=== PATIENT | female | born 1940 | race Hispanic/Latino ===

== ENCOUNTER 2024-11-21 16:41 | Emergency (ER) | payer OTHER, MEDICAID ==
[~2024-11-21] VITALS: Ht 134.6 cm; Wt 51.7 kg
[~2024-11-21 16:41] MED LIST: AMLO-257 PO; AZIT500T4 PO; CEFD300C3 PO; CHOL-9 PO; LEVO50 PO; OSEL75 PO
--- NOTE | 2024-11-21 17:10 | ERN ---
ED Note History of Present Illness Stated Complaint: CONSTIPATION X 2 WEEKS Chief Complaint: Constipation Time Seen by MD: 17:00 Dictation: SAID 84-YEAR-OLD FEMALE HERE WITH HER DAUGHTER WITH COMPLAINTS OF BLOATING WITH CONSTIPATION FOR THE LAST TWO WEEKS. NO FEVER NO CHILLS NO NAUSEA NO VOMITING. DAUGHTER STATES THAT SHE WAS IN A HOSPITAL IN [place] WAS RELEASED AND THEN SHE BROUGHT HER OVER HERE AFTER TWO WEEKS TO [facility] AND HAS BEEN JUST GIVEN HER MILK OF MAGNESIA, DID NOT GO SEE HER DOCTOR AT [place]. SHE SAID SHE IS EATING NORMALLY. Allergies: Coded Allergies: No Known Allergies (Unverified Allergy, Unknown, 02/14/24) Home Meds Active Scripts Amlodipine Besylate (Amlodipine Besylate) 5 Mg Tablet, 1 TAB PO DAILY for high blood pressure for 30 Days, #30 TAB 0 Refills Prov:GHISLAINE HA 02/16/24 Cefdinir (Cefdinir) 300 Mg Capsule, 1 CAP PO BID for 5 Days, #10 CAP 0 Refills Prov:GHISLAINE HA 02/16/24 Oseltamivir Phosphate (Tamiflu) 75 Mg Cap, 1 CAP PO BID for 5 Days, #10 CAP 0 Refills Prov:GHISLAINE HA N 02/16/24 Azithromycin (Azithromycin) 500 Mg Tablet, 1 TAB PO DAILY for 3 Days, #3 TAB 0 Refills Prov:GHISLAINE HA 02/16/24 Reported Medications Cholecalciferol (Vitamin D3) (Vitamin D3) 250 Mcg (62604 Unit) Tablet, 5 TAB PO QWEEK for 28 Days, #8 TAB 0 Refills 02/15/24 Levothyroxine Sodium (Levothroid/Synthroid) 50 Mcg Tab, 25 MCG PO DAILY, TAB 02/15/24 Past Medical History Past Medical History: Hypertension, Hypothyroid Surgical History: Hysterectomy History: Not Applicable RN Note Reviewed/Agreed w/PFSH: Yes Review of System Dictation CONSTITUTIONAL: NEGATIVE EXCEPT FOR HPI HEAD/FACE: NEGATIVE EXCEPT FOR HPI EENT: NEGATIVE EXCEPT FOR HPI RESPIRATORY: NEGATIVE EXCEPT FOR HPI GASTROINTESTINAL/ABDOMINAL: NEGATIVE EXCEPT FOR HPI CONSTIPATION/BLOATING TWO WEEKS GENITOURINARY: NEGATIVE EXCEPT FOR HPI MUSCULOSKELETAL: NEGATIVE EXCEPT FOR HPI INTEGUMENTARY: NEGATIVE EXCEPT FOR HPI NEUROLOGICAL/PSYCH: NEGATIVE EXCEPT FOR HPI HEMATOLOGIC/LYMPHATIC: NEGATIVE EXCEPT FOR HPI ALL SYSTEMS NEGATIVE, EXCEPT NOTED ABOVE. 13 POINT REVIEW OF SYSTEMS ASSESSED AND ALL NEGATIVE EXCEPT FOR ABOVE. Initial Vital Sign VS Vital Signs Date Time Temp Pulse Resp B/P (MAP) Pulse Ox O2 Delivery O2 Flow Rate FiO2 11/21/24 16:44 98.1 82 18 128/88 98 11/21/24 17:15 Room Air* 0 21 Physical Exam Dictation VITAL SIGNS REVIEWED GENERAL APPEARANCE: ALERT, ORIENTED X 122. HAS A HISTORY OF DEMENTIA AND DAUGHTER IS THE CHIEF HISTORIAN. HEAD AND FACE: NON-TRAUMATIC. EYES: PERRL, PINK CONJUNCTIVAS, EYELID NO TRAUMA, ANTERIOR CHAMBER WITH ARCUS SENILIS. EARS: PINNAS INTACT AND NO SIGNS OF TRAUMA OR ERYTHEMA EAR CANALS CLEAR AND NO DISCHARGE TM NO ERYTHEMA NOSE: NO DISCHARGE, NO BLEEDING. OROPHARYNX: MOUTH NORMAL, TONGUE PINK, PHARYNX CLEAR,NO ERYTHEMA, TONSILS NO EXUDATES, NO ABSCESSES NOTED, MUCOUS MEMBRANE MOIST NECK: SUPPLE, NON-TENDER, NO THYROMEGALY, NO MASSES, NO JVD, NO BRUITS BREAST:DEFERRED CHEST:NO TENDERNESS, NO CREPITUS, NO PARADOXICAL MOVEMENT, NO RETRACTIONS LUNGS:CLEAR, WELL-VENTILATED, SYMMETRIC, NO RALES, NO WHEEZING, NO RHONCHI, NO STRIDOR, GOOD BREATH SOUNDS BILATERALLY HEART: REGULAR RATE, REGULAR RHYTHM, NO MURMUR, NO GALLOPS VASCULAR: NO PERIPHERAL EDEMA, ABDOMEN: SOFT, POSITIVE BOWEL SOUNDS/HYPOACTIVE, NONDISTENDED, NO GUARDING, NONTENDER, NO REBOUND, NO MASSES NO HEPATOMEGALY, NO SPLENOMEGALY, NO ASHTON'S SIGN, NO HERNIAS. NO FOCAL TENDERNESS RECTAL: DEFERRED GENITAL: DEFERRED NEUROLOGICAL: NORMAL SPEECH, MOTOR FUNCTION INTACT, SENSORY FUNCTION INTACT MUSCULOSKELETAL: NECK NONTENDER, FULL RANGE OF MOTION, BACK NONTENDER, FULL RANGE OF MOTION, EXTREMITIES: NONTENDER, FULL RANGE OF MOTION SKIN: COLOR PINK, DRY, NO TURGOR, NO RASH, NO LACERATIONS, NO ABRASIONS, NO CONTUSIONS. LYMPHATIC: DEFERRED Results (Laboratory/Radiology) Laboratory/Radiology KUB DEMONSTRATES NONSPECIFIC GAS PATTERN AND RETAINED STOOL. Labs Reviewed?: Yes ED Course ED Course Orders Procedure Category Date Status Time Lactulose 20 Gm/30 Ml PHA 11/21/24 Complete Udcup (Constulose 17:30 Bisacodyl (Dulcolax) PHA 11/21/24 Complete 17:30 Abd 1vw RAD 11/21/24 Taken 17:08 Current Medications Medications (Trade) Dose Ordered Sig/Ashley Route PRN Reason Start Time Stop Time Status Last Admin Dose Admin Bisacodyl (DulcoLAX) 10 mg ONCE ONCE RC 11/21/24 17:30 11/21/24 17:31 DC 11/21/24 17:35 Lactulose (Constulose 20gm/ 30ml Udcup) 20 gm ONCE ONCE PO 11/21/24 17:30 11/21/24 17:31 DC 11/21/24 17:35 Vital Signs Date Time Temp Pulse Resp B/P (MAP) Pulse Ox O2 Delivery O2 Flow Rate FiO2 11/21/24 18:40 108 21 182/72 96 Room Air* 0 21 11/21/24 17:15 97.5 79 15 176/74 98 Room Air* 0 21 11/21/24 16:44 98.1 82 18 128/88 98 1845/PATIENT DISCHARGED HOME WITH FAMILY WITH [facility]. THEY WERE GIVEN INSTRUCTIONS ON HOW TO PROCEED WITH [facility] ALSO REFERRED TO DR. HDZ/BLANKET WASHER Medical Decision Making MDM MEDICAL DISCHARGE MAKING BASED ON KUB AND ADMINISTERING LACTULOSE WITH DULCOLAX SUPPOSITORY. NO STOOLS AT THIS TIME HOWEVER PATIENT STATES SHE FEELS LIKE SHE NEEDS TO GO. PATIENT WILL BE DISCHARGED HOME WITH A DAUGHTER WITH DIAGNOSIS CONSTIPATION SHE WILL BE SENT HOME WITH [facility] GIVEN INSTRUCTIONS TO GIVE EVERY 10 MINUTES UNTIL STOOLS ARE CLEAR ALSO PROVIDED THE NAME OF DR. VERONICA HDZ BLANKET WASHER DX & DISP Disposition: Discharge Departure Impression: Primary Impression: Acute constipation Condition: Stable Scripts Peg 3350/Na Sulf,Bicarb,Cl/KCl (Golytely/Colyte Soln) 236-22.74G Soln 4000 ML PO AD, #1 BOTTLE MIXED BOTTLE DIRECTED WITH WATER. GIVE ONE CUP EVERY 10 MINUTES UNTIL STOOLS ARE CLEAR. Prov: YOMAIRA CAMPUZANO [employer] 11/21/24 Additional Instructions: FOLLOW-UP WITH PRIMARY CARE PROVIDER IN 1 TO 2 DAYS. TAKE MEDICATIONS DIRECTED HERE IN THE EMERGENCY ROOM. OKAY TO CONTINUE HOME MEDICATIONS UNLESS OTHERWISE DISCUSSED DURING YOUR VISIT IN THE EMERGENCY ROOM TODAY. RETURN TO YOUR NEAREST EMERGENCY ROOM IF SYMPTOMS WORSEN OR IF THERE IS NO IMPROVEMENT. CALL 911 IF YOU NEED IMMEDIATE ASSISTANCE. TAKE TYLENOL OR MOTRIN [id number] NEEDED AND IF NO CONTRAINDICATIONS ARE PRESENT. INCREASE ORAL HYDRATION. A WOUND CULTURE OR URINE CULTURE WAS ORDERED HERE IN THE EMERGENCY ROOM DEPARTMENT PLEASE FOLLOW-UP WITH PRIMARY CARE PROVIDER AND ADVISE THEM TO GET REPEAT PORTS FROM OUR FACILITY. IF YOU HAD ANY ITZEL WRAP/SPLINTS THAT WERE APPLIED HERE, PLEASE DO NOT REMOVE THEM UNTIL YOU SEE YOUR PRIMARY CARE OR SPECIALTY. USE GOLYTELY DIRECTED UNTIL STOOLS ARE CLEAR. FOLLOW UP WITH YOUR PRIMARY CARE DOCTOR, DR. NICK MOULTON IN THE NEXT 1-2 DAYS FOR MANAGEMENT OF CONSTIPATION Referrals: TEJAL MOULTON (PCP) MAURO HDZ MD Time of Disposition: 18:53 I have reviewed the case, and I agree with, Diagnosis and Plan YOMAIRA CAMPUZANO NP Nov 21, 2024 17:10
[2024-11-21 17:15] VITALS: TEMP 97.6
[2024-11-21] MEDS: LACTULOSE 20 GM/30 ML UDCUP PO ONE (17:35)
--- NOTE | 2024-11-21 17:47 | NUR ---
PER PT'S FAMILY PATIENT HAD NOT GONE TO THE RESTROOM IN TWO WEEKS.
[2024-11-21 18:40] VITALS: BP 182/72; PULSE 108; RESP 21; O2SAT 96
[2024-11-21] MEDS ORDERED: GOLY4L PO (18:54)
--- NOTE | 2024-11-21 20:21 | HMCIMG ---
EXAM: CR Abdomen, 1 View. CLINICAL HISTORY: CONSTIPATION/BLOATING COMPARISON: None provided. FINDINGS: BOWEL: The bowel gas pattern is within normal limits. Abundant colonic fecal matter may reflect constipation. PERITONEUM/SOFT TISSUES: No free air evident. No pathologic appearing calcification. BONES: No acute osseous abnormality. IMPRESSION: The bowel gas pattern is within normal limits. Abundant colonic fecal matter may reflect constipation. /[place]
== END 2024-11-21 19:15 | disposition home or self-care (01) ==
LOC: EDH 16:41
DX: K59.09 Other constipation (principal); E03.9 Hypothyroidism, unspecified; I10 Essential (primary) hypertension; Z79.890 Hormone replacement therapy; Z90.710 Acquired absence of both cervix and uterus
CPT/HCPCS: 74018; 99284

== ENCOUNTER 2025-01-22 12:59 | Inpatient (IN) | payer OTHER, MEDICAID ==
[~2025-01-22] VITALS: Ht 149.9 cm; Wt 47.7 kg
[~2025-01-22 12:59] MED LIST changes: -AZIT500T4 PO; -CEFD300C3 PO; -CHOL-9 PO; +CYAN-52 PO; +DOCU100C33 PO; -OSEL75 PO; +TRAM50TA4 PO; +TRAZ150T79 PO; +VITAMIN D3 PO
[2025-01-22 13:20] LABS: IMMATURE GRANULOCYTE ABSOLUTE 0.02 K/uL (0-1); NUCLEATED RED BLOOD CELLS 0.0 % (0.0-0.19); PLATELET COUNT (AUTO) 280 K/uL (130-400); RED BLOOD CELL COUNT(AUTO) 4.85 MIL/uL (4.00-5.50); RED CELL DISTRIBUTION WIDTH 12.5 % (11.0-15.5); WHITE BLOOD COUNT (AUTO) 8.3 K/uL (4.8-10.8)
[2025-01-22 13:35] LABS: CREATININE 0.8 mg/dL (0.5-1.0); GLOMERULAR FILTR. RATE CALC 73.0 mL/min (>90); GLUCOSE,RANDOM 120.0 mg/dL (70-105); SODIUM SERUM 138.0 mmol/L (136-145); UREA NITROGEN, BLOOD 15.0 mg/dL (7-18)
[2025-01-22 13:37] LABS: INR 1.04 (0.85-1.15)
[2025-01-22 13:40] LABS: ASPARTATE AMINOTRANSFERASE 24.0 U/L (10-37); CREATINE KINASE, TOTAL 30.0 U/L (21-232); TOTAL PROTEIN, SERUM 7.4 g/dL (6.0-8.3)
--- NOTE | 2025-01-22 13:43 | EKG ---
[facility] Test Date: 2025-01-22 Test Time: 13:34:43 Pat Name: NIRAV TOMPKINS Department: ED Room: Gender: F Metal Expediter: [id number] : 1940 Requested By: CATHY JARAMILLO Order Number: [id number] Reading MD: Lory Navarro Measurements Intervals [place] Rate: 75 P: 3 MD: 179 QRS: -40 QRSD: 81 T: 34 QT: 404 QTc: 452 Interpretive Statements Sinus rhythm Inferior infarct, old Consider anterior infarct Compared to ECG 02/14/2024 20:26:41 Myocardial infarct finding now present Electronically Signed On 01-22-2025 17:16:32 BUILDING OPERATOR by Lory Navarro Please click the below link to view image of tracing.
--- NOTE | 2025-01-22 13:51 | ERN ---
General Chief Complaint: Dehydration Stated Complaint: DEHYDRATION Time Seen by MD: 13:01 Source: patient History of Present Illness Initial Comments PATIENT IS A 84-YEAR-OLD FEMALE COMING IN DUE TO DEHYDRATION. PER PATIENT SHE WAS SENT OVER BY HER PCP DUE TO THE POSSIBILITY HAS BEEN DEHYDRATED. PATIENT DOES HAS A HISTORY OF LUNG CANCER HAS NOT BEEN EATING WELL OR HYDRATING HERSELF WELL. Allergies: Coded Allergies: No Known Allergies (Unverified Allergy, Unknown, 02/14/24) Home Meds Active Scripts Amlodipine Besylate (Amlodipine Besylate) 5 Mg Tablet, 1 TAB PO DAILY for high b lood pressure for 30 Days, #30 TAB 0 Refills Prov:GHISLAINE HA Tera 02/16/24 Reported Medications Docusate Sodium (Docusate Sodium) 100 Mg Capsule, 100 MG PO DAILY, CAP 01/06/25 Cyanocobalamin (Vitamin B-12) (Vitamin B-12) 1,000 Mcg Tablet, 1000 MCG PO DAILY, TAB 01/06/25 [Vitamin D3] 1.250MG No Conflict Check, 1.25 MG PO QWEEK for PRESCRIBE 01/06/25 Tramadol Hcl (Tramadol HCl) 50 Mg Tablet, 50 MG PO AD, TAB 01/06/25 Trazodone HCl (Trazodone HCl) 150 Mg Tablet, 150 MG PO HS, TAB 01/06/25 Levothyroxine Sodium (Levothroid/Synthroid) 50 Mcg Tab, 25 MCG PO DAILY, TAB 02/15/24 Past Medical History Past Medical History: Cancer, Dementia, High Cholesterol, Hypertension, Hypothyroid Past Surgical History: Hysterectomy Female( History) History: Not Applicable ROS Dictation CONSTITUTIONAL: NO CHILLS, NO FEVER, NO WEAKNESS, NO DIAPHORESIS, NO MALAISE. HEAD/FACE: NO SIGNS OF TRAUMA. EENT: NO EYE PAIN, NO BLURRED VISION, NO TEARING, NO DOUBLE VISION, NO EAR PAIN, NO EAR DISCHARGE, NO NOSE PAIN, NO NASAL CONGESTION, NO THROAT PAIN, NO THROAT SWELLING, NO MOUTH PAIN. RESPIRATORY: NO COUGH, NO ORTHOPNEA, NO SOB, NO STRIDOR, NO WHEEZING. CARDIOVASCULAR: NO CHEST PAIN, NO EDEMA, NO PALPITATIONS, NO SYNCOPE. GASTROINTESTINAL/ABDOMINAL: NO ABDOMINAL PAIN, NO CONSTIPATION, NO DIARRHEA, NO NAUSEA, NO VOMITING. GENITOURINARY: NO ABNORMAL DISCHARGE, NO DYSURIA, NO FREQUENT URINATION, NO HEMATURIA. NO COMPLAINTS OF PAIN IN THE GENITALS. MUSCULOSKELETAL: NO BACK PAIN, NO GOUT, NO JOINT PAIN, NO JOINT SWELLING, NO MUSCLE PAIN, NO MUSCLE STIFFNESS, NO NECK PAIN. INTEGUMENTARY: NO CHANGE IN COLOR, NO CHANGE IN HAIR/NAILS, NO DRYNESS, NO LESION, NO LUMPS, NO RASH. NEUROLOGICAL/PSYCH: NO ANXIETY, NOT DEPRESSED, NO EMOTIONAL PROBLEM, NO HEADACHE, NO NUMBNESS, NO PRE-EXISTING DEFICIT, NO HISTORY OF SEIZURES, NO TREMORS, NO WEAKNESS. HEMATOLOGIC/LYMPHATIC: NOT ANEMIC, NO HISTORY OF BLOOD CLOTS, NO APPARENT BLEEDING, NO BRUISING, GLANDS NOT SWOLLEN. ALL SYSTEMS NEGATIVE, EXCEPT NOTED. Physical Exam Physical Exam Dictation VITAL SIGNS: REVIEWED. GENERAL APPEARANCE: ALERT, ORIENTED X3, NO ACUTE DISTRESS, OBESE. HEAD AND FACE: NON-TRAUMATIC. EYES: PERRL, PINK CONJUNCTIVAS, EYELID NO TRAUMA, ANTERIOR CHAMBER CLEAR. EARS: PINNAS INTACT AND NO SIGNS OF TRAUMA OR ERYTHEMA. EAR CANALS CLEAR AND NO DISCHARGE. TMS NO ERYTHEMA. NOSE: NO DISCHARGE, NO BLEEDING. OROPHARYNX: MOUTH NORMAL, TEETH NO CARIES, TONGUE PINK. PHARYNX CLEAR, NO ERYTHEMA. TONSILS NO EXUDATES, NO ABSCESSES NOTED. MUCOUS MEMBRANE MOIST. NECK: SUPPLE, NON-TENDER, NO THYROMEGALY, NO MASSES, NO JVD, NO BRUITS. BREAST: DEFERRED. CHEST: NO TENDERNESS, NO CREPITUS, NO PARADOXICAL MOVEMENT, NO RETRACTIONS. LUNGS: CLEAR, WELL-VENTILATED, SYMMETRIC, NO RALES, NO WHEEZING, NO RHONCHI, NO STRIDOR, GOOD BREATH SOUNDS BILATERALLY. HEART: REGULAR RATE, REGULAR RHYTHM, NO MURMUR, NO GALLOPS. VASCULAR: NO PERIPHERAL EDEMA. ABDOMEN: SOFT, POSITIVE BOWEL SOUNDS, NONDISTENDED, NO GUARDING, NONTENDER, NO REBOUND, NO MASSES NO HEPATOMEGALY, NO SPLENOMEGALY, NO ASHTON'S SIGN, NO HERNIAS. RECTAL: DEFERRED. GENITAL: DEFERRED. NEUROLOGICAL: NORMAL SPEECH, GROSS MOTOR FUNCTION INTACT, GROSS SENSORY FUNCTION INTACT. MUSCULOSKELETAL: NECK NONTENDER, FULL RANGE OF MOTION, BACK NONTENDER, FULL RANGE OF MOTION. EXTREMITIES: NONTENDER, FULL RANGE OF MOTION. SKIN: COLOR PINK, DRY, NO TURGOR, NO RASH, NO LACERATIONS, NO ABRASIONS, NO CONTUSIONS. LYMPHATICS: DEFERRED. Results Laboratory and Microbiology Lab and Micro Result Laboratory Tests Test 01/22/25 13:14 White Blood Count 8.3 K/uL (4.8-10.8) Red Blood Count 4.85 MIL/uL (4.00-5.50) Hemoglobin 14.2 g/dL (12.0-16.0) Hematocrit 42.7 % (36-48) Mean Corpuscular Volume 88.0 fL (79-99) Mean Corpuscular Hemoglobin 29.3 pg (27.0-33.0) Mean Corpuscular Hemoglobin Concent 33.3 g/dL (32.0-36.0) Red Cell Distribution Width 12.5 % (11.0-15.5) Platelet Count 280 K/uL (130-400) Mean Platelet Volume 10.3 fL (7.5-10.5) Immature Granulocyte % (Auto) 0.2 % (0-1) Neutrophils (%) (Auto) 66.3 % (40.0-77.0) Lymphocytes (%) (Auto) 23.9 % (21.0-51.0) Monocytes (%) (Auto) 7.0 % (3.0-13.0) Eosinophils (%) (Auto) 2.2 % (0.0-8.0) Basophils (%) (Auto) 0.4 % (0.0-5.0) Neutrophils # (Auto) 5.5 K/uL (1.8-7.7) Lymphocytes # (Auto) 2.0 K/uL (1.0-4.8) Monocytes # (Auto) 0.6 K/uL (0.1-1.0) Eosinophils # (Auto) 0.18 K/uL (0.00-0.70) Basophils # (Auto) 0.03 K/uL (0.00-0.20) Absolute Immature Granulocyte (auto 0.02 K/uL (0-1) Nucleated Red Blood Cells 0.0 % (0.0-0.19) Prothrombin Time 11.0 SEC (9.6-11.6) Prothromb Time International Ratio 1.04 (0.85-1.15) Activated Partial Thromboplast Time 25.9 SEC (26.3-35.5) L Sodium Level 138 mmol/L (136-145) Potassium Level 3.7 mmol/L (3.5-5.1) Chloride Level 101 mmol/L (101-111) Carbon Dioxide Level 28 mmol/L (21-32) Blood Urea Nitrogen 15 mg/dL (7-18) Creatinine 0.8 mg/dL (0.5-1.0) Glomerular Filtration Rate Calc 73 mL/min (>90) Random Glucose 120 mg/dL (70-105) H Total Calcium 9.2 mg/dL (8.5-10.1) Magnesium Level 2.00 mg/dL (1.80-2.40) Total Bilirubin 0.4 mg/dL (0.2-1.0) Aspartate Amino Transf (AST/SGOT) 24 U/L (10-37) Alanine Aminotransferase (ALT/SGPT) 22 U/L (12-78) Alkaline Phosphatase 80 U/L (50-136) Total Creatine Kinase 30 U/L (21-232) # Troponin I High Sensitivity 8 ng/L (4-50) Total Protein 7.4 g/dL (6.0-8.3) Albumin 3.4 g/dL (3.5-5.0) L Labs Reviewed?: Yes EKG/XRAY/US/CT/MRI EKG Comment 01/22/2025 TIME 1:34 P.M. VENTRICULAR RATE 75 SINUS RHYTHM [place] [address] WAVE ELEVATION OR DEPRESSION X-RAY Comment [place] [id number] [place] [address] IMAGING REPORT Signed PATIENT: NIRAV TOMPKINS MR#: [id number] : 1940 SEX: F AGE: 84 LOCATION: [facility] ORDER [id number] STATUS: REG ER REPORT#: [id number] SERVICE 1302 REASON: CP ORDERING PHYSICIAN: CATHY JARAMILLO MD PROCEDURE: CXR1VW - CHEST 1VW EXAM: CR Chest, 1 View. CLINICAL HISTORY: CP COMPARISON: None provided. FINDINGS: LUNGS: There is no mass, infiltrate, or acute pulmonary abnormality. PLEURAL SPACES: No pleural effusion or pneumothorax. MEDIASTINUM: Cardiac size and mediastinal contours within normal limits. BONES: No aggressive appearing osseous lesion seen. IMPRESSION: No acute cardiopulmonary pathology is evident. /[place] DICTATED BY: BUBBA MILLER Jr., MD DATE: 01/22/251503 ELECTRONICALLY SIGNED BY: BUBBA MILLER Jr., MD DATE: 01/22/25 150 MDM MDM: DIFFERENTIAL DIAGNOSIS: FAILURE TO THRIVE, HISTORY OF LUNG CANCER, DECREASED APPETITE, RATIONALE: TESTS CONSIDERED AND ORDERED SECONDARY TO SHARED DECISION MAKING INCLUDE: PREVIOUS OUTSIDE RECORDS REVIEWED: OLD ER VISITS. RISK OF COMPLICATION AND/OR MORBIDITY OR MORTALITY OF PATIENT MANAGEMENT: NONE MEDICATIONS-PER MEDICATION RECONCILIATION NEED FOR HOSPITALIZATION: PATIENT DOES MEET CRITERIA FOR HOSPITALIZATION. NEED FOR EMERGENCY MAJOR/MINOR SURGERY: NO THERE ARE NO SOCIAL CONCERNS WITH THIS PATIENT. PRESCRIPTION DRUG MANAGEMENT PRESCRIPTIONS WILL INCLUDE SYMPTOMATIC CARE PATIENT'S PRIOR EXTERNAL MEDICAL RECORDS FROM OTHER ER VISITS WERE REVIEWED BY ME INDICATED. PRIOR TESTING AND RESULTS FROM PREVIOUS VISITS WERE REVIEWED. PRIOR TESTS WERE TAKEN INTO ACCOUNT WITH MEDICAL DECISION MAKING AND RESOURCE UTILIZATION, INDEPENDENT HISTORIAN/HISTORIANS WERE USED TO OBTAIN COMPLETE MEDICAL HISTORY. I INDEPENDENTLY INTERPRETED THE TEST THAT WERE PERFORMED, RESULTS WERE REVIEWED BY ME AND CONSIDERED FINDINGS ON RADIOLOGY IF ORDERED. MEDICAL MANAGEMENT AND EXAMINATION INTERPRETATION DISCUSSIONS WERE HAD BY ME WITH OTHER QUALIFIED HEALTHCARE PROFESSIONALS INDICATED FOR THE PATIENT'S CARE.. PATIENT WILL BE ADMITTED UNDER THE CARE OF HOSPITALIST GROUP ED Course Orders Procedure Category Date Status Time Cbc With Differential LAB 01/22/25 Complete 13:02 Prothrombin Time With LAB 01/22/25 Complete INR 13:02 Chest 1vw RAD 01/22/25 Resulted 13:02 12 Lead Ekg Tracing- EKG 01/22/25 Complete Technical 13:02 0.9%Nacl 1000ml (Ns PHA 01/22/25 Complete 1000ml) 13:30 Magnesium LAB 01/22/25 Complete 13:02 Creatine Kinase, Total LAB 01/22/25 Complete 13:02 Troponin I High LAB 01/22/25 Complete Sensitivity 13:02 Urinalysis Profile LAB 01/22/25 Logged 13:02 Partial LAB 01/22/25 Complete Thromboplastin Time 13:02 Comprehensive LAB 01/22/25 Complete Metabolic Panel 13:02 Current Medications Medications (Trade) Dose Ordered Sig/Ashley Route PRN Reason Start Time Stop Time Status Last Admin Dose Admin Sodium Chloride 1,000 ml @ 0 mls/hr ONCE ONCE IV 01/22/25 13:30 01/22/25 13:31 DC Vital Signs Date Time Temp Pulse Resp B/P (MAP) Pulse Ox O2 Delivery O2 Flow Rate FiO2 01/22/25 13:00 97.9 80 16 201/90 97 Room Air 0 DX & DISP Disposition: Inpatient Decision to Admit Time: 16:31 Departure Impression: Primary Impression: Failure to thrive in adult Condition: Stable Referrals: TEJAL MOULTON (PCP) CATHY JARAMILLO MD Jan 22, 2025 13:51
--- NOTE | 2025-01-22 14:05 | HMCIMG ---
EXAM: CR Chest, 1 View. CLINICAL HISTORY: CP COMPARISON: None provided. FINDINGS: LUNGS: There is no mass, infiltrate, or acute pulmonary abnormality. PLEURAL SPACES: No pleural effusion or pneumothorax. MEDIASTINUM: Cardiac size and mediastinal contours within normal limits. BONES: No aggressive appearing osseous lesion seen. IMPRESSION: No acute cardiopulmonary pathology is evident. /[place]
[2025-01-22] MEDS ORDERED: COMPOUND IV REFRIGERATED 1 EACH IVSOLN MISC PRN (17:30)
[2025-01-22 18:12] LABS: LACTATE DEHYDROGENASE 288.0 U/L (81-234)
--- NOTE | 2025-01-22 18:44 | HMCIMG ---
EXAM: CT Head Without IV contrast. CLINICAL HISTORY: hx of dementia, delirium and confusion TECHNIQUE: Axial computed tomography images of the head/brain without intravenous contrast. COMPARISON: None provided. FINDINGS: BRAIN: No acute bleed or infarct. Chronic ischemic and atrophic changes. 1.5 x 1.2 x 0.8 cm calcified extra-axial lesion in the left parietal region which likely represents a meningioma. VENTRICLES: No hydrocephalus. ORBITS: The orbits are unremarkable. SINUSES AND MASTOIDS: The paranasal sinuses and mastoid air cells are clear. BONES: No fracture. SOFT TISSUES: Unremarkable. IMPRESSION: 1. No acute bleed or infarct. Chronic ischemic and atrophic changes. 2. 1.5 x 1.2 x 0.8 cm calcified extra-axial lesion in the left parietal region which likely represents a meningioma. /[place]
[2025-01-22] MEDS: M.V.I. IV [ADULT] 10 ML, FOLic ACID 5 MG/ML VIAL 1 MG, THIAMINE HCL 100 MG in 0.9%NACL ... IV SCH (18:48)
[2025-01-22] MEDS: 0.9%NACL 1000ML 1,000 ML IV ONE (18:50)
[2025-01-22] MEDS: THIAMINE HCL 100 MG/ML 2ML VIAL IVP SCH (18:50)
--- NOTE | 2025-01-22 19:36 | HMCIMG ---
EXAM: CT Abdomen and Pelvis Without IV contrast CLINICAL HISTORY: nausea, with poor oral intake, no bowel movement x 2 weeks, hx of lung cancer TECHNIQUE: Axial computed tomography images of the abdomen and pelvis without intravenous contrast. CONTRAST: No IV contrast. COMPARISON: None provided. FINDINGS: LUNG BASES: Mild bibasilar atelectasis. The rest of the lung bases appear clear. No pleural effusions are seen. LIVER: Unremarkable. GALLBLADDER AND BILE DUCTS: The gallbladder appears within normal limits. No radioopaque gallstones are seen. No biliary ductal dilatation is evident. PANCREAS: Unremarkable. SPLEEN: Unremarkable. ADRENAL GLANDS: Unremarkable. KIDNEYS, URETERS, AND BLADDER: The kidneys appear within normal limits. There is no hydronephrosis or hydroureter. No urinary calculi are seen. STOMACH AND BOWEL: Unremarkable appearance of the stomach and bowel. No evidence of bowel obstruction. No evidence suggesting enteritis or colitis. Mild constipation. APPENDIX: No evidence of acute appendicitis on CT examination. PERITONEUM: No free fluid. No free air. LYMPH NODES: No lymphadenopathy is evident. REPRODUCTIVE: The uterus is surgically absent. No adnexal lesion. VASCULATURE: Mild atherosclerotic wall calcifications in the abdominal aorta. No evidence of abdominal aortic aneurysm. BONES: Moderate multilevel degenerative changes in the spine. No aggressive appearing osseous lesion. No acute osseous pathology evident. IMPRESSION: No acute intra-abdominal or pelvic abnormality. /[place]
--- NOTE | 2025-01-22 20:25 | HP ---
[facility] HISTORY AND PHYSICAL Date of Service: Jan 22, 2025 Time of Service: 20:18 HISTORY OF PRESENT ILLNESS: Date of service: 01/22/2025, patient was seen in ER room three This 84-year-old female with a history of advanced dementia, recently diagnosed lung cancer being followed by oncologist in [place], [place], hypertension, hyperlipidemia, hypothyroidism, who presented to the ER for further evaluation of poor oral intake, ongoing for the past 2-3 weeks. Symptoms have been nonresolving and family reports that patient has been having confusion, agitation and worsening delirium with underlying history of dementia. Family reports that patient has had dementia for several years and needs assistance with ADLs. She is followed by Dr. Pablo with Oncology in [facility], she was told that she had lung cancer recently about three months ago. Family denies patient is currently on active chemotherapy currently. Patient has been maintained on tramadol for pain and family reports that patient has had no bowel movement for two weeks. Oral intake has been very poor as well and patient reports having had nausea and vomiting. Family denies patient having fevers or chills. Patient was seen by PCP today and referred to ER for further evaluation. Family reports that patient has had weight loss of about 10-15 lb over the last three weeks. On presentation to the ER, patient was noted to be afebrile with T-max of 97.9 F, heart rate of 80, blood pressure 201/90. Labs on presentation showed WBC count of 8300, hemoglobin of 14.2, platelet count of [id number]. BMP was unremarkable. Patient in the ER was very agitated and had to give her a small dose of Ativan that helped her calm down. Patient will be admitted for further IV hydration, patient will undergo further workup as well including abdominal CT for further evaluation. We will see how patient progresses in the next 48-72 hours. We will request consultation with Dr. Landers with oncology as well. REVIEW OF SYSTEMS CONSTITUTIONAL: Weight loss, poor oral intake NEUROLOGICAL: Confusion, underlying history of dementia ENT: No hearing loss, otalgia, otorrhea, rhinitis, rhinorrhea, hoarseness, or sore throat. CARDIOVASCULAR: Denies any exertional angina, dyspnea on exertion, orthopnea, paroxysmal nocturnal dyspnea, palpitations, life-threatening arrhythmias, claudication. PULMONARY: Denies any shortness of breath, cough, phlegm/sputum, hemoptysis, pleuritic chest pain. SLEEP: Denies morning headaches, daytime somnolence or napping. Denies difficulty falling asleep, staying asleep, waking from sleep. Denies knowledge of snoring. GASTROINTESTINAL: Nausea, vomiting, constipation GENITOURINARY: Denies frequency, urgency, nocturia, hematuria or incontinence (Storage/Irritative symptoms.) Low urinary stream, straining to void, urinary intermittency or hesitancy, splitting of the voiding stream, terminal dribbling. ENDOCRINOLOGIC: Denies polyuria, polydipsia, polyphagia or heat/cold intolerances. HEMATOLOGIC: Denies thrombophilia/previous clots, or coagulopathy/bleeding disorders. ONCOLOGIC: Denies personal history of malignancy. DERMATOLOGIC: Denies rashes or pruritus. PSYCHIATRIC: Denies any suicidal or homicidal ideation. Denies hallucinations. PAST MEDICAL HISTORY: Recent history of lung cancer being followed by oncologist in [place], [place], hypertension, hyperlipidemia, history of advanced dementia, h ypothyroidism PAST SURGICAL HISTORY: Previous history of hysterectomy PAST SOCIAL HISTORY: Denies history of smoking or alcohol consumption, substance with ADLs and IADLs, resides with daughter at home FAMILY HISTORY: Unknown Allergies: No known drug allergies Home medications: Family will be bringing list of home medications to be reconciled Coded Allergies: No Known Allergies (Unverified Allergy, Unknown, 02/14/24) PHYSICAL EXAM GENERAL APPEARANCE: The patient is awake, agitated, trying to get up from the wheelchair, not following commands NEUROLOGICAL: Cranial nerves II-XII grossly intact. Moving both her upper and lower extremities with no focal deficits HEENT: Face is symmetric. Pupils are equal and reactive. Extraocular movements are intact. Oral mucosa is dry NECK: Supple. No JVD. No thyromegaly. No submental, submandibular, pre- /postauricular, occipital or supraclavicular lymphadenopathy. CHEST: Normal chest expansion. No Telemetry. LUNGS: Absence of any rales, rhonchi or any wheezing. CARDIOVASCULAR: Regular. S1 and S2 normal. No appreciable rubs, murmurs or gallops. ABDOMEN: Soft, nontender, and nondistended. There is no rebound, voluntary guarding, or rigidity. : Deferred. No Ruth. EXTREMITIES: Non-edematous and not cyanotic. No clubbing. Good capillary refill. SKIN: No skin breakdown. Vital Sign (Last 24 Hours) 01/22/25 19:48 Temp 98.2 Pulse 82 Resp 18 B/P (MAP) 153/62 Pulse Ox 98 O2 Delivery Room Air* O2 Flow Rate 0 FiO2 21 LABS: Laboratory: Test 01/22/25 13:41 01/22/25 13:14 Range/Units Erythrocyte Sedimentation Rate 34 H 0-30 MM/HR Hemoglobin A1c 5.5 4.0-6.0 % Estimated Average Glucose (eAG) 111 70-126 mg/dL Lactate Dehydrogenase 288 H 81-234 U/L C-Reactive Protein, Quantitative 1.70 0.5-3.0 mg/L Vitamin B12 Level 386 193-986 pg/mL Folic Acid (LAB) 11.30 2-20 ng/mL Procalcitonin < 0.05 L 0.05-0.5 ng/mL Thyroid Stimulating Hormone (TSH) 4.63 H 0.36-3.74 uIU/mL White Blood Count 8.3 4.8-10.8 K/uL Red Blood Count 4.85 4.00-5.50 MIL/uL Hemoglobin 14.2 12.0-16.0 g/dL Hematocrit 42.7 36-48 % Mean Corpuscular Volume 88.0 79-99 fL Mean Corpuscular Hemoglobin 29.3 27.0-33.0 pg Mean Corpuscular Hemoglobin Concent 33.3 32.0-36.0 g/dL Red Cell Distribution Width 12.5 11.0-15.5 % Platelet Count 280 130-400 K/uL Mean Platelet Volume 10.3 7.5-10.5 fL Immature Granulocyte % (Auto) 0.2 0-1 % Neutrophils (%) (Auto) 66.3 40.0-77.0 % Lymphocytes (%) (Auto) 23.9 21.0-51.0 % Monocytes (%) (Auto) 7.0 3.0-13.0 % Eosinophils (%) (Auto) 2.2 0.0-8.0 % Basophils (%) (Auto) 0.4 0.0-5.0 % Neutrophils # (Auto) 5.5 1.8-7.7 K/uL Lymphocytes # (Auto) 2.0 1.0-4.8 K/uL Monocytes # (Auto) 0.6 0.1-1.0 K/uL Eosinophils # (Auto) 0.18 0.00-0.70 K/uL Basophils # (Auto) 0.03 0.00-0.20 K/uL Absolute Immature Granulocyte (auto 0.02 0-1 K/uL Nucleated Red Blood Cells 0.0 0.0-0.19 % Prothrombin Time 11.0 9.6-11.6 SEC Prothromb Time International Ratio 1.04 0.85-1.15 Activated Partial Thromboplast Time 25.9 L 26.3-35.5 SEC Sodium Level 138 136-145 mmol/L Potassium Level 3.7 3.5-5.1 mmol/L Chloride Level 101 101-111 mmol/L Carbon Dioxide Level 28 21-32 mmol/L Blood Urea Nitrogen 15 7-18 mg/dL Creatinine 0.8 0.5-1.0 mg/dL Glomerular Filtration Rate Calc 73 >90 mL/min Random Glucose 120 H 70-105 mg/dL Total Calcium 9.2 8.5-10.1 mg/dL Magnesium Level 2.00 1.80-2.40 mg/dL Total Bilirubin 0.4 0.2-1.0 mg/dL Aspartate Amino Transf (AST/SGOT) 24 10-37 U/L Alanine Aminotransferase (ALT/SGPT) 22 12-78 U/L Alkaline Phosphatase 80 50-136 U/L Total Creatine Kinase 30 # 21-232 U/L Troponin I High Sensitivity 8 4-50 ng/L Total Protein 7.4 6.0-8.3 g/dL Albumin 3.4 L 3.5-5.0 g/dL Current Medications Medications (Trade) Dose Ordered Sig/Ashley Route PRN Reason Start Time Stop Time Status Last Admin Dose Admin Acetaminophen (TYLenol 325MG TAB) 650 mg Q6H PRN PO MILD PAIN (1-3) 01/22/25 17:30 02/21/25 17:29 Albuterol (DUOneb) 1 udvial Q6H PRN IH SHORTNESS OF BREATH 01/22/25 17:30 02/21/25 17:29 Amlodipine Besylate (NorvASC 5MG TAB) 5 mg DAILY PO 01/23/25 09:00 02/22/25 08:59 Hydralazine HCl (APRESOLine 20MG INJ) 5 mg Q6H PRN IV ADMINISTER FOR SBP > 160 01/22/25 18:00 02/21/25 17:59 Lorazepam (AtiVAN) 0.5 mg Q12H PRN IVP ANXIETY/AGITATION 01/22/25 18:00 01/29/25 17:59 01/22/25 18:21 0.5 MG Multivitamins/ Minerals 10 ml/ Folic Acid 1 mg/ Thiamine HCl 100 mg/Sodium Chloride 1,010 ml @ 75 mls/hr Q24H IV 01/22/25 17:30 01/25/25 06:57 01/22/25 18:48 75 MLS/HR Ondansetron HCl (zoFRAN 4MG INJ) 4 mg Q6H PRN IVP NAUSEA/VOMITING 01/22/25 17:30 02/21/25 17:29 Pantoprazole Sodium (PROTonix 40MG INJ) 40 mg Q24H IVP 01/22/25 17:30 02/21/25 17:29 01/22/25 18:50 40 MG Thiamine HCl (Vitamin B-1) 100 mg Q24H IVP 01/22/25 17:30 02/21/25 17:29 01/22/25 18:50 100 MG DIAGNOSTICS / RADIOLOGY: SERVICE [id number] REASON: nausea, with poor oral intak no bowel movement x 2 weeks, hx of lung cancer ORDERING PHYSICIAN: RAFI ROBLES MD PROCEDURE: ABD PEL WO - CT ABDOMEN/PELVIS W/O CONTRAST EXAM: CT Abdomen and Pelvis Without IV contrast CLINICAL HISTORY: nausea, with poor oral intake, no bowel movement x 2 weeks, hx of lung cancer TECHNIQUE: Axial computed tomography images of the abdomen and pelvis without intravenous contrast. CONTRAST: No IV contrast. COMPARISON: None provided. FINDINGS: LUNG BASES: Mild bibasilar atelectasis. The rest of the lung bases appear clear. No pleural effusions are seen. LIVER: Unremarkable. GALLBLADDER AND BILE DUCTS: The gallbladder appears within normal limits. No radioopaque gallstones are seen. No biliary ductal dilatation is evident. PANCREAS: Unremarkable. SPLEEN: Unremarkable. ADRENAL GLANDS: Unremarkable. KIDNEYS, URETERS, AND BLADDER: The kidneys appear within normal limits. There is no hydronephrosis or hydroureter. No urinary calculi are seen. STOMACH AND BOWEL: Unremarkable appearance of the stomach and bowel. No evidence of bowel obstruction. No evidence suggesting enteritis or colitis. Mild constipation. APPENDIX: No evidence of acute appendicitis on CT examination. PERITONEUM: No free fluid. No free air. LYMPH NODES: No lymphadenopathy is evident. REPRODUCTIVE: The uterus is surgically absent. No adnexal lesion. VASCULATURE: Mild atherosclerotic wall calcifications in the abdominal aorta. No evidence of abdominal aortic aneurysm. BONES: Moderate multilevel degenerative changes in the spine. No aggressive appearing osseous lesion. No acute osseous pathology evident. IMPRESSION: No acute intra-abdominal or pelvic abnormality. /Vernal DICTATED BY: BUBBA MILLER Jr., MD DATE: 01/22/252034 ELECTRONICALLY SIGNED BY: BUBBA MILLER Jr., MD DATE: 01/22/252034 ASSESSMENT: Hypertensive urgency, POA Failure to thrive, POA Moderate protein calorie malnutrition, POA Advanced dementia, POA Delirium complicating advanced dementia, POA Constipation x2 weeks, POA History of lung cancer being followed by oncologist in [place], [place], POA Debility/frailty, POA Underlying history of hypertension, POA Hypothyroidism, POA Insomnia, POA PLAN: Patient will be admitted to medical-surgical floor under telemetry monitoring Patient will receive one dose of Ativan as patient is very agitated and non cooperative for placing IV and blood draws, and we will try to obtain a CT abdomen pelvis for further evaluation of poor oral intake with constipation x 2 weeks We will start patient on thiamine supplementation, and IV fluids banana bag at 75 mL/hours Patient will be resumed on her home antihypertensives with amlodipine 5 mg daily We will keep patient on p.r.n. IV hydralazine in case SBP is greater than 170 We will bladder scan patient in case of urinary retention, patient will be straight cathed, urinalysis will be obtained to r/o UTI, urine culture will be obtained We will request consultation with Dr. Pat with Oncology, patient has history of documented dementia with history of behavioral disturbance and is presenting with failure to thrive with history of recently diagnosed lung cancer, patient is presenting with poor oral intake We will request consultation with vender Home medications will be reconciled and updated once available All labs will be repeated in the morning We will keep patient on DVT prophylaxis with Lovenox, GI prophylaxis with Protonix With regards to constipation, we will start patient on MiraLax daily as well as Colace twice a day, we will minimize narcotics unless patient has severe pain We will see how patient progresses next 48-72 hours, we will have case man melissament assist with discharge planning with the patient Date of service: 01/22/2025 Plan of care was discussed with daughters at bedside, Rafi Robles MD Advanced Care Planning: Which of the following were discussed: Hospice care: Yes __ No _X_ Therapeutic options: Yes _X_ No __ Advance directives: Yes _X_ No __ Other discussions: Discussed with who?: Patient Voluntary nature of this service was explained to the patient? Yes _x_ No __ Amount of time spent: 20 minutes RAFI ROBLES MD Jan 22, 2025 20:25
--- NOTE | 2025-01-22 23:06 | NUR ---
PT UNABLE TO TAKE PO MED SHE IS STILL DROWSY FROM ATIVAN GIVEN TO HER BY DAY STAFF
--- NOTE | 2025-01-22 23:12 | NUR ---
FLOOR RN NOT AVAIL TO GET THE REPORT FOR NOW
[2025-01-23] VITALS (10 sets, daily range): BP systolic 132–178; BP diastolic 68–98; PULSE 63–94; RESP 16–19; TEMP 97.2–97.9; O2SAT 96–99
[2025-01-23 00:41] LABS: APPEARANCE,URINE CLEAR (CLEAR); GLUCOSE, URINE (UA) NEGATIVE (NEGATIVE); LEUKOCYTE ESTERASE ,URINE 250 Leu/uL (NEGATIVE); NITRATE,URINE NEGATIVE (NEGATIVE); OCCULT BLOOD,URINE +- (TRACE) (NEGATIVE)
[2025-01-23 00:42] LABS: ADD UA MICROSCOPIC YES
[2025-01-23 00:44] LABS: SQUAMOUS EPITHELIAL CELL,UR RARE /HPF (0-2)
[2025-01-23 04:38] LABS: IMMATURE GRANULOCYTE ABSOLUTE 0.01 K/uL (0-1); NUCLEATED RED BLOOD CELLS 0.0 % (0.0-0.19); PLATELET COUNT (AUTO) 244 K/uL (130-400); RED BLOOD CELL COUNT(AUTO) 4.75 MIL/uL (4.00-5.50); RED CELL DISTRIBUTION WIDTH 12.4 % (11.0-15.5); WHITE BLOOD COUNT (AUTO) 7.4 K/uL (4.8-10.8)
[2025-01-23 05:01] LABS: ASPARTATE AMINOTRANSFERASE 22.0 U/L (10-37); CREATININE 0.7 mg/dL (0.5-1.0); GLOMERULAR FILTR. RATE CALC 85.0 mL/min (>90); GLUCOSE,RANDOM 97.0 mg/dL (70-105); SODIUM SERUM 139.0 mmol/L (136-145); TOTAL PROTEIN, SERUM 7.1 g/dL (6.0-8.3); UREA NITROGEN, BLOOD 13.0 mg/dL (7-18)
[2025-01-23] MEDS: amLODIPine 5 MG TAB PO SCH (09:00)
--- NOTE | 2025-01-23 11:51 | NUR ---
DCP:HOME vs SNF SW spoke with daughters who were at bedside. Pt does have a wheelchair at home. Pt does not have any home health or provider services. Pt requires assist with ADLs and daughters are the one to assist with those tasks. At DC pt will want to go home however daughters state they would be open to SNF.
--- NOTE | 2025-01-23 15:56 | TELE.CONS ---
Tele-psychiatry Consultation Patient Name: Mery Slade Patient : 1940 Patient Hospital: [facility] Chief Complaint: admitted for dehydration and failure to thrive hx of lung cancer given ativan 0.5mg @4am History of Present Illness Mrey Slade is a 84 years old, female consulted at January 23, 2025 at -delirium -hx of dementia -sun-downing / take out her IVs -anxious - ativan trazodone 150mg po qhs Patient seen via [employer]. Does not know where she is. Does not know the year. States that she is 89. Patient sedated for remainder of evaluation. attending - Nicanor Ernandez / Kay - [phone] / [phone] Review of Systems Past Medical History: as per chart Past Surgical History: as per chart Past Social History: lives with family Allergies: as per chart Medications: home medication - trazodone 150mg po qhs Physical Examination Vitals: as per chart General: No acute distress, resting comfortably on hospital stretcher Mental Status Examination Mental Status: female, emaciated Eye Contact: Consistent Speech: low tone No AIMS or psychomotor disturbances. Mood is ok and affect is blunted Thought process is superficially organized Thought content is negative for SI, HI, AVH. Memory and cognition- impaired Insight and judgment. - limited/limited Diagnoses: Neurocognitive Disorder Patient given Ativan this morning for agitation - patient was sedated but woke up disoriented and agitated. Plan: 1. recommend not to use any benzos as it may exacerbate delirium 2. Would restart home medication of trazodone 150mg po qhs for sleep 3. can consider zyprexa 2.5mg PO/IM q6hr PRN for agitation / not to be given with benzo as it may cause respiratory depression. Get recent EKG and monitor qtc. Discussed with*: Primary Resident ICD-10*: R41.0 Disorientation, unspecified Time spent preparing for consult:??? 15 min Time spent on audio / video:??? 10 min Time spend post consult:??? 15 min Zip Code of Telephysician: --- [id number] Electronically Signed By: Michael Mitchell MD Mery Slade was informed that the consultation would be provided using video communication and was informed that the he/she could elect to receive in-person medical services instead at any time and such a decision would not limit the patient's access to medical services. Mery Berlin consented to the telehealth consultation. At the time of the telehealth consultation, Michael Mitchell MD is located in [place] and the patient is located [facility]. Electronically Signed At: Jan 23, 2025 3:56 PM TRANSFER AND LINE UP WORKER By Michael Mitchell.
--- NOTE | 2025-01-23 16:40 | NUR ---
BEDSIDE SWALLOW EVAL COMPLETED. No s/s of aspiration RECOMMENDATIONS: minced and moist solids, thin liquids, and crushed meds with pureed as tolerated COMPENSATORY STRATEGIES: 1. sit upright during oral intake 2. small bites/sips 3. slow oral intake DUST BOX TENDER reviewed results and recommendations with patient, family and nurse Carolina. DUST BOX TENDER educated patient on risks and consequences of aspiration. Speech therapy not warranted at this time. All questions answered. Addendum: 01/23/[address] [facility] Amended: Links added.
--- NOTE | 2025-01-23 16:47 | NUR ---
SW spoke with family about hospice services. SW educated family on what hospice could offer and they stated that they went through hospice with their father and are aware but on contemplating if doing it at home or at a residential (due to her dementia). Family wanted time to think about place, SW will follow up with family on 01/24/25.
--- NOTE | 2025-01-23 17:28 | PN ---
[facility] PROGRESS NOTE Date of Service: Jan 23, 2025 Time of Service: 16:41 HISTORY OF PRESENT ILLNESS: Date of service: 01/22/2025, patient was seen in ER room three This 84-year-old female with a history of advanced dementia, recently diagnosed lung cancer being followed by oncologist in [place], [place], hypertension, hyperlipidemia, hypothyroidism, who presented to the ER for further evaluation of poor oral intake, ongoing for the past 2-3 weeks. Symptoms have been nonresolving and family reports that patient has been having confusion, agitation and worsening delirium with underlying history of dementia. Family reports that patient has had dementia for several years and needs assistance with ADLs. She is followed by Dr. Pablo with Oncology in [facility], she was told that she had lung cancer recently about three months ago. Family denies patient is currently on active chemotherapy currently. Patient has been maintained on tramadol for pain and family reports that patient has had no bowel movement for two weeks. Oral intake has been very poor as well and patient reports having had nausea and vomiting. Family denies patient having fevers or chills. Patient was seen by PCP today and referred to ER for further evaluation. Family reports that patient has had weight loss of about 10-15 lb over the last three weeks. On presentation to the ER, patient was noted to be afebrile with T-max of 97.9 F, heart rate of 80, blood pressure 201/90. Labs on presentation showed WBC count of 8300, hemoglobin of 14.2, platelet co unt of [id number]. BMP was unremarkable. Patient in the ER was very agitated and had to give her a small dose of Ativan that helped her calm down. Patient will be admitted for further IV hydration, patient will undergo further workup as well including abdominal CT for further evaluation. SUBJECTIVE: 01/23/25: Patient was seen and evaluated in room 305. patient was asleep when we entered the room and her family was present in the room. patients family reports that she was sent to the hospital by her PCP hasn't had oral intake in the last 2 weeks and she started getting more agitated and confused recently. Patients family reports that she was recently diagnosed with lung cancer and is being followed by her oncologist in [place] and the oncologist recommended for no chemotherapy. Tele -psychiatry was consulted. Patient was started on PPN, was started on olanzapine. REVIEW OF SYSTEMS CONSTITUTIONAL: Weight loss, poor oral intake NEUROLOGICAL: Confusion, underlying history of dementia ENT: No hearing loss, otalgia, otorrhea, rhinitis, rhinorrhea, hoarseness, or sore throat. CARDIOVASCULAR: Denies any exertional angina, dyspnea on exertion, orthopnea, paroxysmal nocturnal dyspnea, palpitations, life-threatening arrhythmias, claudication. PULMONARY: Denies any shortness of breath, cough, phlegm/sputum, hemoptysis, pleuritic chest pain. SLEEP: Denies morning headaches, daytime somnolence or napping. Denies difficulty falling asleep, staying asleep, waking from sleep. Denies knowledge of snoring. GASTROINTESTINAL: Nausea, vomiting, constipation GENITOURINARY: Denies frequency, urgency, nocturia, hematuria or incontinence (Storage/Irritative symptoms.) Low urinary stream, straining to void, urinary intermittency or hesitancy, splitting of the voiding stream, terminal dribbling. ENDOCRINOLOGIC: Denies polyuria, polydipsia, polyphagia or heat/cold intolerances. HEMATOLOGIC: Denies thrombophilia/previous clots, or coagulopathy/bleeding disorders. ONCOLOGIC: Denies personal history of malignancy. DERMATOLOGIC: Denies rashes or pruritus. PSYCHIATRIC: Denies any suicidal or homicidal ideation. Denies hallucinations. PHYSICAL EXAM GENERAL APPEARANCE: The patient was asleep, not following commands. NEUROLOGICAL: Deferred. HEENT: Deferred. NECK: Deferred. CHEST: Deferred. LUNGS: Deferred. CARDIOVASCULAR: Deferred. ABDOMEN: Deferred. : Deferred. EXTREMITIES: Non-edematous and not cyanotic. No clubbing. Good capillary refill. SKIN: No skin breakdown. Vital Signs (last 8hr) Date Time Temp Pulse Resp B/P (MAP) Pulse Ox O2 Delivery O2 Flow Rate FiO2 01/23/25 12:00 97.9 63 18 132/68 97 Room Air LABS: Laboratory: Test 01/23/25 04:15 01/23/25 00:30 01/22/25 13:41 01/22/25 13:14 Range/Units White Blood Count 7.4 4.8-10.8 K/uL Red Blood Count 4.75 4.00-5.50 MIL/uL Hemoglobin 13.9 12.0-16.0 g/dL Hematocrit 41.9 36-48 % Mean Corpuscular Volume 88.2 79-99 fL Mean Corpuscular Hemoglobin 29.3 27.0-33.0 pg Mean Corpuscular Hemoglobin Concent 33.2 32.0-36.0 g/dL Red Cell Distribution Width 12.4 11.0-15.5 % Platelet Count 244 130-400 K/uL Mean Platelet Volume 10.5 7.5-10.5 fL Immature Granulocyte % (Auto) 0.1 0-1 % Neutrophils (%) (Auto) 42.0 40.0-77.0 % Lymphocytes (%) (Auto) 48.2 21.0-51.0 % Monocytes (%) (Auto) 6.8 3.0-13.0 % Eosinophils (%) (Auto) 2.6 0.0-8.0 % Basophils (%) (Auto) 0.3 0.0-5.0 % Neutrophils # (Auto) 3.1 1.8-7.7 K/uL Lymphocytes # (Auto) 3.6 1.0-4.8 K/uL Monocytes # (Auto) 0.5 0.1-1.0 K/uL Eosinophils # (Auto) 0.19 0.00-0.70 K/uL Basophils # (Auto) 0.02 0.00-0.20 K/uL Absolute Immature Granulocyte (auto 0.01 0-1 K/uL Nucleated Red Blood Cells 0.0 0.0-0.19 % Sodium Level 139 136-145 mmol/L Potassium Level 3.8 3.5-5.1 mmol/L Chloride Level 102 101-111 mmol/L Carbon Dioxide Level 27 21-32 mmol/L Blood Urea Nitrogen 13 7-18 mg/dL Creatinine 0.7 0.5-1.0 mg/dL Glomerular Filtration Rate Calc 85 >90 mL/min Random Glucose 97 70-105 mg/dL Total Calcium 8.9 8.5-10.1 mg/dL Magnesium Level 1.90 1.80-2.40 mg/dL Total Bilirubin 0.5 # 0.2-1.0 mg/dL Aspartate Amino Transf (AST/SGOT) 22 10-37 U/L Alanine Aminotransferase (ALT/SGPT) 21 12-78 U/L Alkaline Phosphatase 74 50-136 U/L Ammonia 26 11-32 umol/L Total Protein 7.1 6.0-8.3 g/dL Albumin 3.4 L 3.5-5.0 g/dL Urine Color YELLOW YELLOW Urine Appearance CLEAR CLEAR Urine pH 6.0 5.0-8.0 Urine Specific [place] 1.021 1.001-1.031 Urine Protein NEGATIVE NEGATIVE mg/dL Urine Glucose (UA) NEGATIVE NEGATIVE mg/dL Urine Ketones NEGATIVE NEGATIVE mg/dL Urine Occult Blood +- (TRACE) H NEGATIVE Urine Nitrate NEGATIVE NEGATIVE Urine Bilirubin NEGATIVE NEGATIVE mg/dL Urine Urobilinogen 0.2 0.2-1.0 mg/dL Urine Leukocyte Esterase 250 H NEGATIVE [place]/uL Urine RBC 2-5 H 0-1 /HPF Urine WBC 11-25 H 0-1 /HPF Urine Squamous Epithelial Cells RARE 0-2 /HPF Urine Bacteria RARE None Seen /HPF Erythrocyte Sedimentation Rate 34 H 0-30 MM/HR Hemoglobin A1c 5.5 4.0-6.0 % Estimated Average Glucose (eAG) 111 70-126 mg/dL Lactate Dehydrogenase 288 H 81-234 U/L C-Reactive Protein, Quantitative 1.70 0.5-3.0 mg/L Vitamin B12 Level 386 193-986 pg/mL Folic Acid (LAB) 11.30 2-20 ng/mL Procalcitonin < 0.05 L 0.05-0.5 ng/mL Thyroid Stimulating Hormone (TSH) 4.63 H 0.36-3.74 uIU/mL Prothrombin Time 11.0 9.6-11.6 SEC Prothromb Time International Ratio 1.04 0.85-1.15 Activated Partial Thromboplast Time 25.9 L 26.3-35.5 SEC Total Creatine Kinase 30 # 21-232 U/L Troponin I High Sensitivity 8 4-50 ng/L Current Medications Medications (Trade) Dose Ordered Sig/Ashley Route PRN Reason Start Time Stop Time Status Last Admin Dose Admin Acetaminophen (TYLenol 325MG TAB) 650 mg Q6H PRN PO MILD PAIN (1-3) 01/22/25 17:30 02/21/25 17:29 01/23/25 13:01 650 MG Albuterol (DUOneb) 1 udvial Q6H PRN IH SHORTNESS OF BREATH 01/22/25 17:30 02/21/25 17:29 Amlodipine Besylate (NorvASC 5MG TAB) 5 mg DAILY PO 01/23/25 09:00 01/23/25 14:00 DC Amlodipine Besylate (NorvASC 5MG TAB) 10 mg DAILY PO 01/24/25 09:00 02/23/25 08:59 Ceftriaxone Sodium (ROCEphine 1G INJ) 1 gm Q24H IVPB 01/23/25 07:30 02/02/25 07:29 01/23/25 09:09 1 GM Docusate Sodium (COLace 100MG CAP) 100 mg BID PO 01/22/25 21:00 02/21/25 20:59 Hydralazine HCl (APRESOLine 20MG INJ) 5 mg Q6H PRN IV ADMINISTER FOR SBP > 160 01/22/25 18:00 02/21/25 17:59 Levothyroxine Sodium (SYNTHroid 50MCG TAB) 25 mcg SYN PO 01/23/25 07:30 02/22/25 07:29 Lorazepam (AtiVAN) 0.5 mg Q12H PRN IVP ANXIETY/AGITATION 01/22/25 18:00 01/23/25 16:17 DC 01/23/25 04:10 0.5 MG Multivitamins/ Minerals 10 ml/ Folic Acid 1 mg/ Thiamine HCl 100 mg/Sodium Chloride 1,010 ml @ 75 mls/hr Q24H IV 01/22/25 17:30 01/25/25 06:57 01/22/25 18:48 75 MLS/HR Olanzapine (ZyPREXA 10MG/ML 1ML Vial) 2.5 mg Q6H6 PRN IM AGITATION 01/23/25 16:30 02/22/25 16:29 Ondansetron HCl (zoFRAN 4MG INJ) 4 mg Q6H PRN IVP NAUSEA/VOMITING 01/22/25 17:30 02/21/25 17:29 Pantoprazole Sodium (PROTonix 40MG INJ) 40 mg Q24H IVP 01/22/25 17:30 02/21/25 17:29 01/22/25 18:50 40 MG Polyethylene Glycol (MIRalax 3350 17 GM POWD.PACK) 17 gm DAILY PO 01/23/25 09:00 02/22/25 08:59 Thiamine HCl (Vitamin B-1) 100 mg Q24H IVP 01/22/25 17:30 02/21/25 17:29 01/22/25 18:50 100 MG Trazodone HCl (DesyREL/OlepTRO) 150 mg HS PO 01/23/25 21:00 02/22/25 20:59 DIAGNOSTICS / RADIOLOGY: [facility] [address] [place], [place] [id number] IMAGING REPORT Signed PATIENT: NIRAV TOMPKINS MR#: [id number] : 1940 SEX: F AGE: 84 LOCATION: [facility] ORDER 10 STATUS: ADM IN REPORT#: [id number] SERVICE 06 REASON: hx of dementia, delirium and confusion ORDERING PHYSICIAN: DUYEN ROTHMAN MD PROCEDURE: HEAD WO - CT HEAD/BRAIN W/O CONTRAST EXAM: CT Head Without IV contrast. CLINICAL HISTORY: hx of dementia, delirium and confusion TECHNIQUE: Axial computed tomography images of the head/brain without intravenous contrast. COMPARISON: None provided. FINDINGS: BRAIN: No acute bleed or infarct. Chronic ischemic and atrophic changes. 1.5 x 1.2 x 0.8 cm calcified extra-axial lesion in the left parietal region which likely represents a meningioma. VENTRICLES: No hydrocephalus. ORBITS: The orbits are unremarkable. SINUSES AND MASTOIDS: The paranasal sinuses and mastoid air cells are clear. BONES: No fracture. SOFT TISSUES: Unremarkable. IMPRESSION: 1. No acute bleed or infarct. Chronic ischemic and atrophic changes. 2. 1.5 x 1.2 x 0.8 cm calcified extra-axial lesion in the left parietal region which likely represents a meningioma. /[place] DICTATED BY: VIVI OWENS MD DATE: 01/22/251941 ELECTRONICALLY SIGNED BY: VIVI OWENS MD DATE: 01/22/251941 [facility] [address] [place] [id number] IMAGING REPORT Signed PATIENT: NIRAV TOMPKINS MR#: [id number] : 1940 SEX: F AGE: 84 LOCATION: [facility] ORDER 10 STATUS: ADM IN MEDICAL [facility]ENTER REPORT#: [id number] SERVICE 06 REASON: nausea, with poor oral intak no bowel movement x 2 weeks, hx of lung cancer ORDERING PHYSICIAN: DUYEN ROTHMAN MD PROCEDURE: ABD PEL WO - CT ABDOMEN/PELVIS W/O CONTRAST EXAM: CT Abdomen and Pelvis Without IV contrast CLINICAL HISTORY: nausea, with poor oral intake, no bowel movement x 2 weeks, hx of lung cancer TECHNIQUE: Axial computed tomography images of the abdomen and pelvis without intravenous contrast. CONTRAST: No IV contrast. COMPARISON: None provided. FINDINGS: LUNG BASES: Mild bibasilar atelectasis. The rest of the lung bases appear clear. No pleural effusions are seen. LIVER: Unremarkable. GALLBLADDER AND BILE DUCTS: The gallbladder appears within normal limits. No radioopaque gallstones are seen. No biliary ductal dilatation is evident. PANCREAS: Unremarkable. SPLEEN: Unremarkable. ADRENAL GLANDS: Unremarkable. KIDNEYS, URETERS, AND BLADDER: The kidneys appear within normal limits. There is no hydronephrosis or hydroureter. No urinary calculi are seen. STOMACH AND BOWEL: Unremarkable appearance of the stomach and bowel. No evidence of bowel obstruction. No evidence suggesting enteritis or colitis. Mild constipation. APPENDIX: No evidence of acute appendicitis on CT examination. PERITONEUM: No free fluid. No free air. LYMPH NODES: No lymphadenopathy is evident. REPRODUCTIVE: The uterus is surgically absent. No adnexal lesion. VASCULATURE: Mild atherosclerotic wall calcifications in the abdominal aorta. No evidence of abdominal aortic aneurysm. BONES: Moderate multilevel degenerative changes in the spine. No aggressive appearing osseous lesion. No acute osseous pathology evident. IMPRESSION: No acute intra-abdominal or pelvic abnormality. /[place] DICTATED BY: BUBBA MILLER Jr., MD DATE: 01/22/252034 ELECTRONICALLY SIGNED BY: BUBBA MILLER Jr., MD DATE: 01/22/252034 [place] [address] [place] [address] IMAGING REPORT Signed PATIENT: NIRAV TOMPKINS MR#: [id number] : 1940 SEX: F AGE: 84 LOCATION: [facility] ORDER 06 STATUS: REG ER REPORT#: [id number] SERVICE 130 REASON: CP ORDERING PHYSICIAN: CATHY JARAMILLO MD PROCEDURE: CXR1VW - CHEST 1VW EXAM: CR Chest, 1 View. CLINICAL HISTORY: CP COMPARISON: None provided. FINDINGS: LUNGS: There is no mass, infiltrate, or acute pulmonary abnormality. PLEURAL SPACES: No pleural effusion or pneumothorax. MEDIASTINUM: Cardiac size and mediastinal contours within normal limits. BONES: No aggressive appearing osseous lesion seen. IMPRESSION: No acute cardiopulmonary pathology is evident. /[place] DICTATED BY: BUBBA MILLER Jr., MD DATE: 01/22/251503 ELECTRONICALLY SIGNED BY: BUBBA MILLER Jr., MD DATE: 01/22/251503 ASSESSMENT: Hypertensive urgency, POA Failure to thrive, POA Moderate protein calorie malnutrition, POA Advanced dementia, POA Delirium complicating advanced dementia, POA Constipation x2 weeks, POA History of lung cancer being followed by oncologist in [place], [place], POA Debility/frailty, POA Underlying history of hypertension, POA Hypothyroidism, POA Insomnia, POA PLAN: Delirium complicating advanced dementia, POA * On presentation vitals were T-max of 97.9 F, heart rate of 80, blood pressure 201/90. Pertinent labs - Ammonia 26, Vitamin B12-386, Folic acid-11.30, Procal citonin <0.05, TSH-4.63. * Urinalysis was ordered which was positive for leukocyte esterase (250), Urine WBC 11-25, Urine RBC 2-5 * Urine culture was ordered, pending results. * CT head was ordered, results show - no acute bleed or infarct, chronic ischemic and atrophic changes and a extra-axial lesion in the left parietal region which likely represents a meningioma. * CT abdomen was ordered, results were unremarkable * Chest X-ray was ordered, results were unremarkable * Patient was started on empirical antibiotics with ceftriaxone IV * Tele-Psych was consulted, will follow their recommendations. * Patient started on Olanzapine 2.5mg Q6H PRN * Will monitor with daily Q4H neurochecks. Hypertensive urgency, POA * On presentation patient blood pressure was 201/90. Pertinent labs- BUN 15, Creatinine 0.8, T.bilirubin 0.4, AST 24, ALT 22, ALP 80 * CT head was ordered, results show - no acute bleed or infarct, chronic ischemic and atrophic changes and a extra-axial lesion in the left parietal region which likely represents a meningioma. * Patient was started on Amlodipine 10mg PO daily * Patient started on Hydralazine 5mg Q6H PRN. * Will monitor with daily blood pressure monitoring and labs Failure to thrive, POA * Pertinent labs- total protein 7.4, Albumin 3.4, Vitamin B12-386, Folic acid- 11.30, TSH-4.63. * Patient was started on PPN 1010ml @ 75mls/hr History of lung cancer being followed by oncologist in [place], [place], POA * Patient is being followed by Dr. Pablo with Oncology in [facility], she was told that she had lung cancer recently about three months ago. * Chest X-ray was ordered, results were unremarkable. * Oncology was consulted, will follow their recommendations. Constipation x2 weeks, POA: * Patient started on MiraLax, Colace twice a day. * Will minimize narcotics unless patient has severe pain Supportive measures DVT prophylaxis with SCD's, GI prophylaxis with Protonix ATTESTATION BY PHYSICIAN I have seen and examined the patient. I reviewed the documentation, medical decision making, and treatment plan as noted by the resident physician above. I agree with the findings and plan of care. KOURTNEY PINK MD, SHAJI MD Jan 23, 2025 17:28
--- NOTE | 2025-01-23 18:55 | CONS ---
REFERRING PHYSICIAN: Dr. Rafi Robles. REASON FOR CONSULTATION: Lung cancer. HISTORY OF PRESENT ILLNESS: This is an 84-year-old woman, followed by a medical oncologist in [place] for advanced lung cancer, hypertension, hyperlipidemia, hypothyroidism, and deteriorating over the last 3 weeks, has not eaten anything. She was diagnosed with lung cancer 3 months ago. She says she is on no chemo or radiation or any treatment. She has had tramadol for pain. The patient has continued to deteriorate and was sent into the hospital for dehydration and worsening mental status. I talked to the daughter. She had been doing very poorly. PAST MEDICAL HISTORY: Advanced lung cancer as noted above, hypertension, hyperlipidemia, dementia, hypothyroidism. PAST SURGICAL HISTORY: Hysterectomy. MEDICATIONS: See intake sheet. ALLERGIES: None known. FAMILY HISTORY: Negative for lung cancer. SOCIAL HISTORY: Does not smoke or drink. Lives with a daughter, under 24-hour care at home. REVIEW OF SYSTEMS: Unobtainable from the patient. All history obtained from the daughter at the bedside. PHYSICAL EXAMINATION: GENERAL: Shows an elderly woman. VITAL SIGNS: Blood pressure 176/76, pulse 69, respirations 20. CHEST: Show decreased breath sounds. HEART: Regular rate and rhythm. ABDOMEN: Soft. EXTREMITIES: Show edema. NEUROLOGIC: Awake. LABORATORY DATA: CBC: White blood cells 8.3, hemoglobin 14, platelets 280,000. Chemistries: Positive LDH. Calcium reported 8.9. IMAGING: Her chest x-ray did not show anything. CT abdomen and pelvis: This showed a hysterectomy, did not really show anything either. CT brain reported negative. IMPRESSION: * Patient with rapid decline. * History of lung cancer, untreated. * Hypertension. * Hypothyroidism. * Severe dementia. PLAN: I will reach out to Dr. Pablo in [facility] to see if I can get some kind of information about the lung cancer. I talked to the daughter. I am really not sure how far to go with the workup and evaluation because it sounds like her dementia itself is terminal and it is not clear whether we should do anything else to pursue this. We will continue hydration and supportive care. I will try to marshal all the records from [facility] today. We will have further recommendations once I get that. Thank you for the consult. TID: [id number] RECEIPT: [id number]
[2025-01-23] MEDS: M.V.I. IV [ADULT] 10 ML, MULTITRACE-4 ADULT 10ML VIAL 3 ML in CLINIMIX-E4.25%AA/D5+LYT2... IV NR (21:08)
[2025-01-24] VITALS (9 sets, daily range): BP systolic 94–147; BP diastolic 40–68; PULSE 53–65; RESP 15–20; TEMP 97.5–99.6; O2SAT 95–96
--- NOTE | 2025-01-24 06:00 | EKG ---
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
[2025-01-24 07:11] LABS: IMMATURE GRANULOCYTE ABSOLUTE 0.02 K/uL (0-1); NUCLEATED RED BLOOD CELLS 0.0 % (0.0-0.19); PLATELET COUNT (AUTO) 216 K/uL (130-400); RED BLOOD CELL COUNT(AUTO) 4.01 MIL/uL (4.00-5.50); RED CELL DISTRIBUTION WIDTH 12.7 % (11.0-15.5); WHITE BLOOD COUNT (AUTO) 6.7 K/uL (4.8-10.8)
[2025-01-24 07:34] LABS: CREATININE 0.7 mg/dL (0.5-1.0); GLOMERULAR FILTR. RATE CALC 85.0 mL/min (>90); GLUCOSE,RANDOM 96.0 mg/dL (70-105); SODIUM SERUM 142.0 mmol/L (136-145); UREA NITROGEN, BLOOD 16.0 mg/dL (7-18)
[2025-01-24] MEDS: amLODIPine 5 MG TAB PO SCH (08:38)
--- NOTE | 2025-01-24 08:52 | PN ---
[facility] PROGRESS NOTE Date of Service: Jan 24, 2025 Time of Service: 08:46 HISTORY OF PRESENT ILLNESS: Date of service: 01/22/2025, patient was seen in ER room three This 84-year-old female with a history of advanced dementia, recently diagnosed lung cancer being followed by oncologist in [place], [place], hypertension, hyperlipidemia, hypothyroidism, who presented to the ER for further evaluation of poor oral intake, ongoing for the past 2-3 weeks. Symptoms have been nonresolving and family reports that patient has been having confusion, agitation and worsening delirium with underlying history of dementia. Family reports that patient has had dementia for several years and needs assistance with ADLs. She is followed by Dr. Pablo with Oncology in [facility], she was told that she had lung cancer recently about three months ago. Family denies patient is currently on active chemotherapy currently. Patient has been maintained on tramadol for pain and family reports that patient has had no bowel movement for two weeks. Oral intake has been very poor as well and patient reports having had nausea and vomiting. Family denies patient having fevers or chills. Patient was seen by PCP today and referred to ER for further evaluation. Family reports that patient has had weight loss of about 10-15 lb over the last three weeks. On presentation to the ER, patient was noted to be afebrile with T-max of 97.9 F, heart rate of 80, blood pressure 201/90. Labs on presentation showed WBC count of 8300, hemoglobin of 14.2, platelet co unt of [id number]. BMP was unremarkable. Patient in the ER was very agitated and had to give her a small dose of Ativan that helped her calm down. Patient will be admitted for further IV hydration, patient will undergo further workup as well including abdominal CT for further evaluation. SUBJECTIVE: 01/23/25: Patient was seen and evaluated in room 305. patient was asleep when we entered the room and her family was present in the room. patients family reports that she was sent to the hospital by her PCP hasn't had oral intake in the last 2 weeks and she started getting more agitated and confused recently. Patients family reports that she was recently diagnosed with lung cancer and is being followed by her oncologist in [place] and the oncologist recommended for no chemotherapy. Tele -psychiatry was consulted. Patient was started on PPN, was started on olanzapine. 01/24/25: Patient was seen and evaluated in room 305. patient was asleep when we entered the room and her family was present in the room. Patient family reported that the patient had a good sleep overnight and didn't have any active complaints. Patient was continuing on PPN, and they denied any episodes of agitation or confusion, but mentioned that patient has been sleeping all along. Vitals today Temp-98.1, Pulse 55, Blood pressure 113/56, Spo2 95 REVIEW OF SYSTEMS CONSTITUTIONAL: Weight loss, poor oral intake NEUROLOGICAL: Confusion, underlying history of dementia ENT: No hearing loss, otalgia, otorrhea, rhinitis, rhinorrhea, hoarseness, or sore throat. CARDIOVASCULAR: Denies any exertional angina, dyspnea on exertion, orthopnea, paroxysmal nocturnal dyspnea, palpitations, life-threatening arrhythmias, claudication. PULMONARY: Denies any shortness of breath, cough, phlegm/sputum, hemoptysis, pleuritic chest pain. SLEEP: Denies morning headaches, daytime somnolence or napping. Denies difficulty falling asleep, staying asleep, waking from sleep. Denies knowledge of snoring. GASTROINTESTINAL: Nausea, vomiting, constipation GENITOURINARY: Denies frequency, urgency, nocturia, hematuria or incontinence (Storage/Irritative symptoms.) Low urinary stream, straining to void, urinary intermittency or hesitancy, splitting of the voiding stream, terminal dribbling. ENDOCRINOLOGIC: Denies polyuria, polydipsia, polyphagia or heat/cold intolerances. HEMATOLOGIC: Denies thrombophilia/previous clots, or coagulopathy/bleeding disorders. ONCOLOGIC: Denies personal history of malignancy. DERMATOLOGIC: Denies rashes or pruritus. PSYCHIATRIC: Denies any suicidal or homicidal ideation. Denies hallucinations. PHYSICAL EXAM GENERAL APPEARANCE: The patient was asleep, not following commands. NEUROLOGICAL: Deferred. HEENT: Deferred. NECK: Deferred. CHEST: Normal chest expansion. No Telemetry. LUNGS: Normal breath sounds, No crackles, wheezing heard. CARDIOVASCULAR: Normal S1, S2.Normal heart rhythm, no murmurs or gallops heard.. ABDOMEN: Deferred. : Deferred. EXTREMITIES: Non-edematous and not cyanotic. No clubbing. Good capillary refill. SKIN: No skin breakdown. Vital Signs (last 8hr) Date Time Temp Pulse Resp B/P (MAP) Pulse Ox O2 Delivery O2 Flow Rate FiO2 01/24/25 08:00 98.1 55 19 113/56 95 01/24/25 07:29 58 18 N/A Room Air 21 01/24/25 03:50 97.9 53 16 95/50 95 Room Air LABS: Laboratory: Test 01/24/25 06:29 01/23/25 04:15 01/23/25 00:30 01/22/25 13:41 Range/Units White Blood Count 6.7 4.8-10.8 K/uL Red Blood Count 4.01 4.00-5.50 MIL/uL Hemoglobin 11.7 L 12.0-16.0 g/dL Hematocrit 35.5 L 36-48 % Mean Corpuscular Volume 88.5 79-99 fL Mean Corpuscular Hemoglobin 29.2 27.0-33.0 pg Mean Corpuscular Hemoglobin Concent 33.0 32.0-36.0 g/dL Red Cell Distribution Width 12.7 11.0-15.5 % Platelet Count 216 130-400 K/uL Mean Platelet Volume 11.1 H 7.5-10.5 fL Immature Granulocyte % (Auto) 0.3 0-1 % Neutrophils (%) (Auto) 74.5 40.0-77.0 % Lymphocytes (%) (Auto) 14.7 L 21.0-51.0 % Monocytes (%) (Auto) 8.4 3.0-13.0 % Eosinophils (%) (Auto) 1.8 0.0-8.0 % Basophils (%) (Auto) 0.3 0.0-5.0 % Neutrophils # (Auto) 5.0 1.8-7.7 K/uL Lymphocytes # (Auto) 1.0 1.0-4.8 K/uL Monocytes # (Auto) 0.6 0.1-1.0 K/uL Eosinophils # (Auto) 0.12 0.00-0.70 K/uL Basophils # (Auto) 0.02 0.00-0.20 K/uL Absolute Immature Granulocyte (auto 0.02 0-1 K/uL Nucleated Red Blood Cells 0.0 0.0-0.19 % Sodium Level 142 136-145 mmol/L Potassium Level 3.7 3.5-5.1 mmol/L Chloride Level 107 101-111 mmol/L Carbon Dioxide Level 26 21-32 mmol/L Blood Urea Nitrogen 16 7-18 mg/dL Creatinine 0.7 0.5-1.0 mg/dL Glomerular Filtration Rate Calc 85 >90 mL/min Random Glucose 96 70-105 mg/dL Total Calcium 8.3 L 8.5-10.1 mg/dL Magnesium Level 1.90 1.80-2.40 mg/dL Total Bilirubin 0.5 # 0.2-1.0 mg/dL Aspartate Amino Transf (AST/SGOT) 22 10-37 U/L Alanine Aminotransferase (ALT/SGPT) 21 12-78 U/L Alkaline Phosphatase 74 50-136 U/L Ammonia 26 11-32 umol/L Total Protein 7.1 6.0-8.3 g/dL Albumin 3.4 L 3.5-5.0 g/dL Urine Color YELLOW YELLOW Urine Appearance CLEAR CLEAR Urine pH 6.0 5.0-8.0 Urine Specific Weaver 1.021 1.001-1.031 Urine Protein NEGATIVE NEGATIVE mg/dL Urine Glucose (UA) NEGATIVE NEGATIVE mg/dL Urine Ketones NEGATIVE NEGATIVE mg/dL Urine Occult Blood +- (TRACE) H NEGATIVE Urine Nitrate NEGATIVE NEGATIVE Urine Bilirubin NEGATIVE NEGATIVE mg/dL Urine Urobilinogen 0.2 0.2-1.0 mg/dL Urine Leukocyte Esterase 250 H NEGATIVE Nisreen/uL Urine RBC 2-5 H 0-1 /HPF Urine WBC 11-25 H 0-1 /HPF Urine Squamous Epithelial Cells RARE 0-2 /HPF Urine Bacteria RARE None Seen /HPF Erythrocyte Sedimentation Rate 34 H 0-30 MM/HR Hemoglobin A1c 5.5 4.0-6.0 % Estimated Average Glucose (eAG) 111 70-126 mg/dL Lactate Dehydrogenase 288 H 81-234 U/L C-Reactive Protein, Quantitative 1.70 0.5-3.0 mg/L Vitamin B12 Level 386 193-986 pg/mL Folic Acid (LAB) 11.30 2-20 ng/mL Procalcitonin < 0.05 L 0.05-0.5 ng/mL Thyroid Stimulating Hormone (TSH) 4.63 H 0.36-3.74 uIU/mL Test 01/22/25 13:14 Range/Units Prothrombin Time 11.0 9.6-11.6 SEC Prothromb Time International Ratio 1.04 0.85-1.15 Activated Partial Thromboplast Time 25.9 L 26.3-35.5 SEC Total Creatine Kinase 30 # 21-232 U/L Troponin I High Sensitivity 8 4-50 ng/L Current Medications Medications (Trade) Dose Ordered Sig/Ashley Route PRN Reason Start Time Stop Time Status Last Admin Dose Admin Acetaminophen (TYLenol 325MG TAB) 650 mg Q6H PRN PO MILD PAIN (1-3) 01/22/25 17:30 02/21/25 17:29 01/23/25 13:01 650 MG Albuterol (DUOneb) 1 udvial Q6H PRN IH SHORTNESS OF BREATH 01/22/25 17:30 02/21/25 17:29 Amlodipine Besylate (NorvASC 5MG TAB) 5 mg DAILY PO 01/23/25 09:00 01/23/25 14:00 DC Amlodipine Besylate (NorvASC 5MG TAB) 10 mg DAILY PO 01/24/25 09:00 02/23/25 08:59 Ceftriaxone Sodium (ROCEphine 1G INJ) 1 gm Q24H IVPB 01/23/25 07:30 01/24/25 02:46 DC 01/23/25 09:09 1 GM Ceftriaxone Sodium (ROCEphine 1G INJ) 1 gm Q24H IVPB 01/24/25 09:00 02/03/25 08:59 01/24/25 08:45 1 GM Docusate Sodium (COLace 100MG CAP) 100 mg BID PO 01/22/25 21:00 02/21/25 20:59 01/23/25 20:28 100 MG Hydralazine HCl (APRESOLine 20MG INJ) 5 mg Q6H PRN IV ADMINISTER FOR SBP > 160 01/22/25 18:00 02/21/25 17:59 Levothyroxine Sodium (SYNTHroid 25MCG TAB) 25 mcg SYN PO 01/25/25 06:30 02/22/25 07:29 Levothyroxine Sodium (SYNTHroid 50MCG TAB) 25 mcg SYN PO 01/23/25 07:30 01/24/25 07:15 DC Lorazepam (AtiVAN) 0.5 mg Q12H PRN IVP ANXIETY/AGITATION 01/22/25 18:00 01/23/25 16:17 DC 01/23/25 04:10 0.5 MG Multivitamins/ Minerals 10 ml/ Chromium/Copper/ Manganese/Zinc 3 ml/Amino Acids/ Electrolytes/ Dextrose 2,000 ml @ 80 mls/hr AD IV 01/23/25 19:30 01/24/25 07:14 DC 01/23/25 21:08 80 MLS/HR Multivitamins/ Minerals 10 ml/ Folic Acid 1 mg/ Thiamine HCl 100 mg/Sodium Chloride 1,010 ml @ 75 mls/hr Q24H IV 01/22/25 17:30 01/23/25 19:19 DC 01/23/25 18:49 75 MLS/HR Olanzapine (ZyPREXA 10MG/ML 1ML Vial) 2.5 mg Q6H6 PRN IM AGITATION 01/23/25 16:30 02/22/25 16:29 01/23/25 20:29 2.5 MG Ondansetron HCl (zoFRAN 4MG INJ) 4 mg Q6H PRN IVP NAUSEA/VOMITING 01/22/25 17:30 02/21/25 17:29 Pantoprazole Sodium (PROTonix 40MG INJ) 40 mg Q24H IVP 01/22/25 17:30 02/21/25 17:29 01/23/25 18:45 40 MG Polyethylene Glycol (MIRalax 3350 17 GM POWD.PACK) 17 gm DAILY PO 01/23/25 09:00 02/22/25 08:59 Thiamine HCl (Vitamin B-1) 100 mg Q24H IVP 01/22/25 17:30 02/21/25 17:29 01/23/25 18:45 100 MG Trazodone HCl (DesyREL/OlepTRO) 50 mg HS PO 01/24/25 21:00 02/23/25 20:59 Trazodone HCl (DesyREL/OlepTRO) 100 mg HS PO 01/24/25 21:00 02/22/25 20:59 Trazodone HCl (DesyREL/OlepTRO) 150 mg HS PO 01/23/25 21:00 01/24/25 07:16 DC 01/23/25 20:28 150 MG DIAGNOSTICS / RADIOLOGY: [ ] ASSESSMENT: Hypertensive urgency, POA Failure to thrive, POA Moderate protein calorie malnutrition, POA Advanced dementia, POA Delirium complicating advanced dementia, POA Constipation x2 weeks, POA History of lung cancer being followed by oncologist in [place], [place], POA Debility/frailty, POA Underlying history of hypertension, POA Hypothyroidism, POA Insomnia, POA PLAN: Delirium complicating advanced dementia, POA * On presentation vitals were T-max of 97.9 F, heart rate of 80, blood pressure 201/90. Pertinent labs - Ammonia 26, Vitamin B12-386, Folic acid-11.30, Proca lcitonin <0.05, TSH-4.63. * Urinalysis was ordered which was positive for leukocyte esterase (250), Urine WBC 11-25, Urine RBC 2-5 * Urine culture was ordered, pending results. * CT head was ordered, results show - no acute bleed or infarct, chronic ischemic and atrophic changes and a extra-axial lesion in the left parietal region which likely represents a meningioma. * CT abdomen was ordered, results were unremarkable * Chest X-ray was ordered, results were unremarkable * Patient was started on empirical antibiotics with ceftriaxone IV * Tele-Psych was consulted, will follow their recommendations. * Patient started on Olanzapine 2.5mg Q6H PRN * Speech evaluation was ordered. * Will monitor with daily Q4H neurochecks. Hypertensive urgency, POA * On presentation patient blood pressure was 201/90. Pertinent labs- BUN 15, Creatinine 0.8, T.bilirubin 0.4, AST 24, ALT 22, ALP 80 * CT head was ordered, results show - no acute bleed or infarct, chronic ischemic and atrophic changes and a extra-axial lesion in the left parietal region which likely represents a meningioma. * Patient Amlodipine dose changed to 5mg PO daily * Patient started on Hydralazine 5mg Q6H PRN. * Will monitor with daily blood pressure monitoring and labs Failure to thrive, POA * Pertinent labs- total protein 7.4, Albumin 3.4, Vitamin B12-386, Folic acid- 11.30, TSH-4.63. * Patient was started on PPN 1010ml @ 75mls/hr History of lung cancer being followed by oncologist in [place], [place], POA * Patient is being followed by Dr. Pablo with Oncology in [facility], she was told that she had lung cancer recently about three months ago. * Chest X-ray was ordered, results were unremarkable. * Oncology was consulted, will follow their recommendations. Constipation x2 weeks, POA: * Patient started on MiraLax, Colace twice a day. * Will minimize narcotics unless patient has severe pain Supportive measures DVT prophylaxis with SCD's, GI prophylaxis with Protonix ATTESTATION BY PHYSICIAN I have seen and examined the patient. I reviewed the documentation, medical decision making, and treatment plan as noted by the resident physician above. I agree with the findings and plan of care. KOURTNEY PINK MD, SHAJI MD Jan 24, 2025 08:52
--- NOTE | 2025-01-24 09:52 | NUR ---
meds COLACE AND MIRALAX NOT GIVEN AT THIS TIME. PT SLEEPING. NON LABORED BREATHING. FAMILY AT BEDSIDE.
--- NOTE | 2025-01-24 10:26 | NUR ---
HOSPICE F/U SW followed up with daughters who were at bedside to see if they had discussed in more detail the referral for hospice. Daughters stated that they had a lot of questions about the cancer that their mother had. They state that the pt's doctor had told them that there was a "pill" she could take and would help her however was never prescribed it. 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 SW discussed the goal of care and what would their mother want. Daughter stated that they want more questions answered, they also state that they are going to get in contact with her PCP (whom they have a good relationship with) to see what he recommends. For now they asked to wait and if anything changes they will inform SW this afternoon.
--- NOTE | 2025-01-24 19:50 | NUR ---
STRAIGHT CATH FINISHED AT THIS TIME OUTPUT: 600ML. PT TOLERATED WELL. FAMILY AT BEDSIDE.
[2025-01-24] MEDS ORDERED: M.V.I. IV [ADULT] 10 ML, MULTITRACE-4 ADULT 10ML VIAL 3 ML in CLINIMIX-E4.25%AA/D5+LYT2... IV NR (21:00)
[2025-01-24] MEDS: M.V.I. IV [ADULT] 10 ML, MULTITRACE-4 ADULT 10ML VIAL 3 ML in CLINIMIX-E4.25%AA/D5+LYT2... IV ONE (22:20)
[2025-01-25] VITALS (8 sets, daily range): BP systolic 111–140; BP diastolic 48–72; PULSE 55–82; RESP 16–20; TEMP 97.5–98.2; O2SAT 95–99
[2025-01-25 04:30] LABS: IMMATURE GRANULOCYTE ABSOLUTE 0.02 K/uL (0-1); NUCLEATED RED BLOOD CELLS 0.0 % (0.0-0.19); PLATELET COUNT (AUTO) 205 K/uL (130-400); RED BLOOD CELL COUNT(AUTO) 3.80 MIL/uL (4.00-5.50); RED CELL DISTRIBUTION WIDTH 12.7 % (11.0-15.5); WHITE BLOOD COUNT (AUTO) 5.7 K/uL (4.8-10.8)
[2025-01-25 04:52] LABS: CREATININE 0.6 mg/dL (0.5-1.0); GLOMERULAR FILTR. RATE CALC 88.0 mL/min (>90); GLUCOSE,RANDOM 105.0 mg/dL (70-105); SODIUM SERUM 140.0 mmol/L (136-145); UREA NITROGEN, BLOOD 22.0 mg/dL (7-18)
[2025-01-25] MEDS: ENOXAPARIN SODIUM 30 MG/0.3 ML SQ SCH (09:41)
[2025-01-25] MEDS: amLODIPine 5 MG TAB PO SCH (09:41)
--- NOTE | 2025-01-25 15:22 | PN ---
[facility] PROGRESS NOTE Date of Service: Jan 25, 2025 Time of Service: 15:11 HISTORY OF PRESENT ILLNESS: Date of service: 01/22/2025, patient was seen in ER room three This 84-year-old female with a history of advanced dementia, recently diagnosed lung cancer being followed by oncologist in [place], [place], hypertension, hyperlipidemia, hypothyroidism, who presented to the ER for further evaluation of poor oral intake, ongoing for the past 2-3 weeks. Symptoms have been nonresolving and family reports that patient has been having confusion, agitation and worsening delirium with underlying history of dementia. Family reports that patient has had dementia for several years and needs assistance with ADLs. She is followed by Dr. Pablo with Oncology in [facility], she was told that she had lung cancer recently about three months ago. Family denies patient is currently on active chemotherapy currently. Patient has been maintained on tramadol for pain and family reports that patient has had no bowel movement for two weeks. Oral intake has been very poor as well and patient reports having had nausea and vomiting. Family denies patient having fevers or chills. Patient was seen by PCP today and referred to ER for further evaluation. Family reports that patient has had weight loss of about 10-15 lb over the last three weeks. On presentation to the ER, patient was noted to be afebrile with T-max of 97.9 F, heart rate of 80, blood pressure 201/90. Labs on presentation showed WBC count of 8300, hemoglobin of 14.2, platelet co unt of [id number]. BMP was unremarkable. Patient in the ER was very agitated and had to give her a small dose of Ativan that helped her calm down. Patient will be admitted for further IV hydration, patient will undergo further workup as well including abdominal CT for further evaluation. SUBJECTIVE: 01/23/25: Patient was seen and evaluated in room 305. patient was asleep when we entered the room and her family was present in the room. patients family reports that she was sent to the hospital by her PCP hasn't had oral intake in the last 2 weeks and she started getting more agitated and confused recently. Patients family reports that she was recently diagnosed with lung cancer and is being followed by her oncologist in [place] and the oncologist recommended for no chemotherapy. Tele -psychiatry was consulted. Patient was started on PPN, was started on olanzapine. 01/24/25: Patient was seen and evaluated in room 305. patient was asleep when we entered the room and her family was present in the room. Patient family reported that the patient had a good sleep overnight and didn't have any active complaints. Patient was continuing on PPN, and they denied any episodes of agitation or confusion, but mentioned that patient has been sleeping all along. Vitals today Temp-98.1, Pulse 55, Blood pressure 113/56, Spo2 95 01/25/2025: Patient was evaluated at the bedside this morning. As per daughter patient has improved her mentation and was sleeping comfortably during my visit. She is hemodynamically stable. Patient is encouraged to take soft GI diet wh ile being on PPN. Urine culture revealed no growth. We will discontinue Rocephin. We will continue olanzapine, thiamine, levothyroxine, trazodone. Rest of the plan as discussed below. REVIEW OF SYSTEMS CONSTITUTIONAL: Weight loss, poor oral intake NEUROLOGICAL: Confusion, underlying history of dementia ENT: No hearing loss, otalgia, otorrhea, rhinitis, rhinorrhea, hoarseness, or sore throat. CARDIOVASCULAR: Denies any exertional angina, dyspnea on exertion, orthopnea, paroxysmal nocturnal dyspnea, palpitations, life-threatening arrhythmias, claudication. PULMONARY: Denies any shortness of breath, cough, phlegm/sputum, hemoptysis, pleuritic chest pain. SLEEP: Denies morning headaches, daytime somnolence or napping. Denies difficulty falling asleep, staying asleep, waking from sleep. Denies knowledge of snoring. GASTROINTESTINAL: Nausea, vomiting, constipation GENITOURINARY: Denies frequency, urgency, nocturia, hematuria or incontinence (Storage/Irritative symptoms.) Low urinary stream, straining to void, urinary intermittency or hesitancy, splitting of the voiding stream, terminal dribbling. ENDOCRINOLOGIC: Denies polyuria, polydipsia, polyphagia or heat/cold intolerances. HEMATOLOGIC: Denies thrombophilia/previous clots, or coagulopathy/bleeding disorders. ONCOLOGIC: Denies personal history of malignancy. DERMATOLOGIC: Denies rashes or pruritus. PSYCHIATRIC: Denies any suicidal or homicidal ideation. Denies hallucinations. PHYSICAL EXAM GENERAL APPEARANCE: The patient was asleep, not following commands. NEUROLOGICAL: Deferred. HEENT: Deferred. NECK: Deferred. CHEST: Normal chest expansion. No Telemetry. LUNGS: Normal breath sounds, No crackles, wheezing heard. CARDIOVASCULAR: Normal S1, S2.Normal heart rhythm, no murmurs or gallops heard.. ABDOMEN: Deferred. : Deferred. EXTREMITIES: Non-edematous and not cyanotic. No clubbing. Good capillary refill. SKIN: No skin breakdown. Vital Signs (last 8hr) Date Time Temp Pulse Resp B/P (MAP) Pulse Ox O2 Delivery O2 Flow Rate FiO2 01/25/25 11:36 97.9 55 16 122/59 97 Room Air 01/25/25 08:00 97.5 63 17 120/71 97 Room Air 01/25/25 07:12 61 20 N/A Room Air 21 LABS: Laboratory: Test 01/25/25 04:19 01/24/25 06:29 Range/Units White Blood Count 5.7 4.8-10.8 K/uL Red Blood Count 3.80 L 4.00-5.50 MIL/uL Hemoglobin 11.4 L 12.0-16.0 g/dL Hematocrit 34.3 L 36-48 % Mean Corpuscular Volume 90.3 79-99 fL Mean Corpuscular Hemoglobin 30.0 27.0-33.0 pg Mean Corpuscular Hemoglobin Concent 33.2 32.0-36.0 g/dL Red Cell Distribution Width 12.7 11.0-15.5 % Platelet Count 205 130-400 K/uL Mean Platelet Volume 10.8 H 7.5-10.5 fL Immature Granulocyte % (Auto) 0.3 0-1 % Neutrophils (%) (Auto) 53.6 40.0-77.0 % Lymphocytes (%) (Auto) 33.8 21.0-51.0 % Monocytes (%) (Auto) 8.0 3.0-13.0 % Eosinophils (%) (Auto) 4.0 0.0-8.0 % Basophils (%) (Auto) 0.3 0.0-5.0 % Neutrophils # (Auto) 3.1 1.8-7.7 K/uL Lymphocytes # (Auto) 1.9 1.0-4.8 K/uL Monocytes # (Auto) 0.5 0.1-1.0 K/uL Eosinophils # (Auto) 0.23 0.00-0.70 K/uL Basophils # (Auto) 0.02 0.00-0.20 K/uL Absolute Immature Granulocyte (auto 0.02 0-1 K/uL Nucleated Red Blood Cells 0.0 0.0-0.19 % Sodium Level 140 136-145 mmol/L Potassium Level 3.7 3.5-5.1 mmol/L Chloride Level 108 101-111 mmol/L Carbon Dioxide Level 26 21-32 mmol/L Blood Urea Nitrogen 22 H 7-18 mg/dL Creatinine 0.6 0.5-1.0 mg/dL Glomerular Filtration Rate Calc 88 >90 mL/min Random Glucose 105 70-105 mg/dL Total Calcium 8.3 L 8.5-10.1 mg/dL Troponin I High Sensitivity 9 4-50 ng/L Current Medications Medications (Trade) Dose Ordered Sig/Ashley Route PRN Reason Start Time Stop Time Status Last Admin Dose Admin Acetaminophen (TYLenol 325MG TAB) 650 mg Q6H PRN PO MILD PAIN (1-3) 01/22/25 17:30 02/21/25 17:29 01/23/25 13:01 650 MG Albuterol (DUOneb) 1 udvial Q6H PRN IH SHORTNESS OF BREATH 01/22/25 17:30 02/21/25 17:29 Amlodipine Besylate (NorvASC 5MG TAB) 5 mg DAILY PO 01/23/25 09:00 01/23/25 14:00 DC Amlodipine Besylate (NorvASC 5MG TAB) 5 mg DAILY PO 01/25/25 09:00 02/24/25 08:59 01/25/25 09:41 5 MG Amlodipine Besylate (NorvASC 5MG TAB) 10 mg DAILY PO 01/24/25 09:00 01/24/25 11:17 DC Ceftriaxone Sodium (ROCEphine 1G INJ) 1 gm Q24H IVPB 01/23/25 07:30 01/24/25 02:46 DC 01/23/25 09:09 1 GM Ceftriaxone Sodium (ROCEphine 1G INJ) 1 gm Q24H IVPB 01/24/25 09:00 02/03/25 08:59 01/25/25 09:41 1 GM Docusate Sodium (COLace 100MG CAP) 100 mg BID PO 01/22/25 21:00 02/21/25 20:59 01/25/25 09:42 100 MG Enoxaparin Sodium (Lovenox) 30 mg DAILY SQ 01/25/25 09:00 02/24/25 08:59 01/25/25 09:41 30 MG Hydralazine HCl (APRESOLine 20MG INJ) 5 mg Q6H PRN IV ADMINISTER FOR SBP > 160 01/22/25 18:00 02/21/25 17:59 Levothyroxine Sodium (SYNTHroid 25MCG TAB) 25 mcg SYN PO 01/25/25 06:30 02/22/25 07:29 01/25/25 07:46 25 MCG Levothyroxine Sodium (SYNTHroid 50MCG TAB) 25 mcg SYN PO 01/23/25 07:30 01/24/25 07:15 DC Lorazepam (AtiVAN) 0.5 mg Q12H PRN IVP ANXIETY/AGITATION 01/22/25 18:00 01/23/25 16:17 DC 01/23/25 04:10 0.5 MG Multivitamins/ Minerals 10 ml/ Chromium/Copper/ Manganese/Zinc 3 ml/Amino Acids/ Electrolytes/ Dextrose 2,000 ml @ 80 mls/hr AD IV 01/23/25 19:30 01/24/25 07:14 DC 01/23/25 21:08 80 MLS/HR Multivitamins/ Minerals 10 ml/ Chromium/Copper/ Manganese/Zinc 3 ml/Amino Acids/ Electrolytes/ Dextrose 2,000 ml @ 80 mls/hr AD IV 01/24/25 21:00 01/24/25 20:58 DC Multivitamins/ Minerals 10 ml/ Folic Acid 1 mg/ Thiamine HCl 100 mg/Sodium Chloride 1,010 ml @ 75 mls/hr Q24H IV 01/22/25 17:30 01/23/25 19:19 DC 01/23/25 18:49 75 MLS/HR Olanzapine (ZyPREXA 10MG/ML 1ML Vial) 2.5 mg Q6H6 PRN IM AGITATION 01/23/25 16:30 02/22/25 16:29 01/23/25 20:29 2.5 MG Ondansetron HCl (zoFRAN 4MG INJ) 4 mg Q6H PRN IVP NAUSEA/VOMITING 01/22/25 17:30 01/24/25 11:17 DC Pantoprazole Sodium (PROTonix 40MG INJ) 40 mg Q24H IVP 01/22/25 17:30 02/21/25 17:29 01/24/25 16:32 40 MG Polyethylene Glycol (MIRalax 3350 17 GM POWD.PACK) 17 gm DAILY PO 01/23/25 09:00 02/22/25 08:59 01/25/25 09:41 17 GM Thiamine HCl (Vitamin B-1) 100 mg Q24H IVP 01/22/25 17:30 02/21/25 17:29 01/24/25 16:33 100 MG Trazodone HCl (DesyREL/OlepTRO) 50 mg HS PO 01/24/25 21:00 02/23/25 20:59 Trazodone HCl (DesyREL/OlepTRO) 100 mg HS PO 01/24/25 21:00 02/22/25 20:59 Trazodone HCl (DesyREL/OlepTRO) 150 mg HS PO 01/23/25 21:00 01/24/25 07:16 DC 01/23/25 20:28 150 MG DIAGNOSTICS / RADIOLOGY: [ ] ASSESSMENT: Hypertensive urgency, POA Failure to thrive, POA Moderate protein calorie malnutrition, POA Advanced dementia, POA Delirium complicating advanced dementia, POA Constipation x2 weeks, POA History of lung cancer being followed by oncologist in [place], [place], POA Debility/frailty, POA Underlying history of hypertension, POA Hypothyroidism, POA Insomnia, POA PLAN: Delirium complicating advanced dementia, POA * On presentation vitals were T-max of 97.9 F, heart rate of 80, blood pressure 201/90. Pertinent labs - Ammonia 26, Vitamin B12-386, Folic acid-11.30, Procalcitonin <0.05, TSH-4.63. * Urinalysis was ordered which was positive for leukocyte esterase (250), Urine WBC 11-25, Urine RBC 2-5 * Urine culture was ordered, pending results. * CT head was ordered, results show - no acute bleed or infarct, chronic ischemic and atrophic changes and a extra-axial lesion in the left parietal region which likely represents a meningioma. * CT abdomen was ordered, results were unremarkable * Chest X-ray was ordered, results were unremarkable * Patient was started on empirical antibiotics with ceftriaxone IV * Tele-Psych was consulted, will follow their recommendations. * Patient started on Olanzapine 2.5mg Q6H PRN * Speech evaluation was ordered. * Will monitor with daily Q4H neurochecks. Hypertensive urgency, POA * On presentation patient blood pressure was 201/90. Pertinent labs- BUN 15, Creatinine 0.8, T.bilirubin 0.4, AST 24, ALT 22, ALP 80 * CT head was ordered, results show - no acute bleed or infarct, chronic ischemic and atrophic changes and a extra-axial lesion in the left parietal region which likely represents a meningioma. * Patient Amlodipine dose changed to 5mg PO daily * Patient started on Hydralazine 5mg Q6H PRN. * Will monitor with daily blood pressure monitoring and labs Failure to thrive, POA * Pertinent labs- total protein 7.4, Albumin 3.4, Vitamin B12-386, Folic acid- 11.30, TSH-4.63. * Patient was started on PPN 1010ml @ 75mls/hr History of lung cancer being followed by oncologist in [place], [place], POA * Patient is being followed by Dr. Pablo with Oncology in [facility], she was told that she had lung cancer recently about three months ago. * Chest X-ray was ordered, results were unremarkable. * Oncology was consulted, will follow their recommendations. Constipation x2 weeks, POA: * Patient started on MiraLax, Colace twice a day. * Will minimize narcotics unless patient has severe pain Supportive measures DVT prophylaxis with SCD's, GI prophylaxis with Protonix ATTESTATION BY PHYSICIAN I have seen and examined the patient. I reviewed the documentation, medical decision making, and treatment plan as noted by the resident provider above. I agree with the findings and plan of care. Robert Holguin IV, MD, SUNIL MD Jan 25, 2025 15:22
[2025-01-26] VITALS (7 sets, daily range): BP systolic 108–160; BP diastolic 54–81; PULSE 58–75; RESP 16–18; TEMP 96.5–98; O2SAT 96–98
[2025-01-26 04:40] LABS: IMMATURE GRANULOCYTE ABSOLUTE 0.02 K/uL (0-1); NUCLEATED RED BLOOD CELLS 0.0 % (0.0-0.19); PLATELET COUNT (AUTO) 231 K/uL (130-400); RED BLOOD CELL COUNT(AUTO) 4.20 MIL/uL (4.00-5.50); RED CELL DISTRIBUTION WIDTH 12.7 % (11.0-15.5); WHITE BLOOD COUNT (AUTO) 6.3 K/uL (4.8-10.8)
[2025-01-26 05:03] LABS: CREATININE 0.7 mg/dL (0.5-1.0); GLOMERULAR FILTR. RATE CALC 85.0 mL/min (>90); GLUCOSE,RANDOM 87.0 mg/dL (70-105); PHOSPHORUS 4.0 mg/dL (2.5-4.9); SODIUM SERUM 142.0 mmol/L (136-145); UREA NITROGEN, BLOOD 18.0 mg/dL (7-18)
--- NOTE | 2025-01-26 08:04 | PN ---
SUBJECTIVE: The patient is followed by Dr. 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 He had felt she was not a chemotherapy candidate, which I agree. He is looking for molecular profiling from NGS studies. He said even that may be doubtful by what I described as her condition is now. PHYSICAL EXAMINATION: GENERAL: Shows an elderly woman. VITAL SIGNS: Blood pressure 137/76, pulse 71, respirations 20. CHEST: Clear and soft. IMPRESSION: * Terminal cancer. * End-stage dementia. * Dehydration, on admission. * Hypertension. * Protein-calorie malnutrition. * Hypothyroidism. PLAN: Continue supportive care. Even if she is found to have a molecular target for the cancer, it is unlikely to make any difference in her condition. TID: [id number] RECEIPT: [id number]
--- NOTE | 2025-01-26 12:36 | PN ---
[facility] PROGRESS NOTE Date of Service: Jan 26, 2025 Time of Service: 12:36 HISTORY OF PRESENT ILLNESS: Date of service: 01/22/2025, patient was seen in ER room three This 84-year-old female with a history of advanced dementia, recently diagnosed lung cancer being followed by oncologist in [place], [place], hypertension, hyperlipidemia, hypothyroidism, who presented to the ER for further evaluation of poor oral intake, ongoing for the past 2-3 weeks. Symptoms have been nonresolving and family reports that patient has been having confusion, agitation and worsening delirium with underlying history of dementia. Family reports that patient has had dementia for several years and needs assistance with ADLs. She is followed by Dr. Pablo with Oncology in [facility], she was told that she had lung cancer recently about three months ago. Family denies patient is currently on active chemotherapy currently. Patient has been maintained on tramadol for pain and family reports that patient has had no bowel movement for two weeks. Oral intake has been very poor as well and patient reports having had nausea and vomiting. Family denies patient having fevers or chills. Patient was seen by PCP today and referred to ER for further evaluation. Family reports that patient has had weight loss of about 10-15 lb over the last three weeks. On presentation to the ER, patient was noted to be afebrile with T-max of 97.9 F, heart rate of 80, blood pressure 201/90. Labs on presentation showed WBC count of 8300, hemoglobin of 14.2, platelet co unt of 525086. BMP was unremarkable. Patient in the ER was very agitated and had to give her a small dose of Ativan that helped her calm down. Patient will be admitted for further IV hydration, patient will undergo further workup as well including abdominal CT for further evaluation. SUBJECTIVE: 01/23/25: Patient was seen and evaluated in room 305. patient was asleep when we entered the room and her family was present in the room. patients family reports that she was sent to the hospital by her PCP hasn't had oral intake in the last 2 weeks and she started getting more agitated and confused recently. Patients family reports that she was recently diagnosed with lung cancer and is being followed by her oncologist in [place] and the oncologist recommended for no chemotherapy. Tele -psychiatry was consulted. Patient was started on PPN, was started on olanzapine. 01/24/25: Patient was seen and evaluated in room 305. patient was asleep when we entered the room and her family was present in the room. Patient family reported that the patient had a good sleep overnight and didn't have any active complaints. Patient was continuing on PPN, and they denied any episodes of agitation or confusion, but mentioned that patient has been sleeping all along. Vitals today Temp-98.1, Pulse 55, Blood pressure 113/56, Spo2 95 01/25/2025: Patient was evaluated at the bedside this morning. As per daughter patient has improved her mentation and was sleeping comfortably during my visit. She is hemodynamically stable. Patient is encouraged to take soft GI diet wh ile being on PPN. Urine culture revealed no growth. We will discontinue Rocephin. We will continue olanzapine, thiamine, levothyroxine, trazodone. Rest of the plan as discussed below. 01/26/2025: Patient is evaluated at bedside. She is asleep and her family is beside her. Her daughter reported that she had a mild agitated episode in the morning and she pulled out her IV lines. She reports that the patient is calm overnight but her sleep gets disturbed because of blood work and repeat nurse visits. According to her daughter she breakfast and tolerated well, she has been walking but less when compared to at home. The patient received her last bag of PPN yesterday. Family does not want to think about hospice care right now but they are open to send her to any rehab center if needed. REVIEW OF SYSTEMS CONSTITUTIONAL: Weight loss, poor oral intake NEUROLOGICAL: Confusion, underlying history of dementia ENT: No hearing loss, otalgia, otorrhea, rhinitis, rhinorrhea, hoarseness, or sore throat. CARDIOVASCULAR: Denies any exertional angina, dyspnea on exertion, orthopnea, paroxysmal nocturnal dyspnea, palpitations, life-threatening arrhythmias, claudication. PULMONARY: Denies any shortness of breath, cough, phlegm/sputum, hemoptysis, pleuritic chest pain. SLEEP: Denies morning headaches, daytime somnolence or napping. Denies difficulty falling asleep, staying asleep, waking from sleep. Denies knowledge of snoring. GASTROINTESTINAL: Nausea, vomiting, constipation GENITOURINARY: Denies frequency, urgency, nocturia, hematuria or incontinence (Storage/Irritative symptoms.) Low urinary stream, straining to void, urinary intermittency or hesitancy, splitting of the voiding stream, terminal dribbling. ENDOCRINOLOGIC: Denies polyuria, polydipsia, polyphagia or heat/cold intolerances. HEMATOLOGIC: Denies thrombophilia/previous clots, or coagulopathy/bleeding disorders. ONCOLOGIC: Denies personal history of malignancy. DERMATOLOGIC: Denies rashes or pruritus. PSYCHIATRIC: Denies any suicidal or homicidal ideation. Denies hallucinations. PHYSICAL EXAM GENERAL APPEARANCE: The patient was asleep, not following commands. NEUROLOGICAL: Deferred. HEENT: Deferred. NECK: Deferred. CHEST: Normal chest expansion. No Telemetry. LUNGS: Normal breath sounds, No crackles, wheezing heard. CARDIOVASCULAR: Normal S1, S2.Normal heart rhythm, no murmurs or gallops heard.. ABDOMEN: Deferred. : Deferred. EXTREMITIES: Non-edematous and not cyanotic. No clubbing. Good capillary refill. SKIN: No skin breakdown. Vital Signs (last 8hr) Date Time Temp Pulse Resp B/P (MAP) Pulse Ox O2 Delivery O2 Flow Rate FiO2 01/26/25 11:24 96.4 58 17 116/64 97 Room Air 01/26/25 08:00 98.1 61 17 108/54 95 Room Air LABS: Laboratory: Test 01/26/25 04:25 Range/Units White Blood Count 6.3 4.8-10.8 K/uL Red Blood Count 4.20 4.00-5.50 MIL/uL Hemoglobin 12.3 12.0-16.0 g/dL Hematocrit 37.5 36-48 % Mean Corpuscular Volume 89.3 79-99 fL Mean Corpuscular Hemoglobin 29.3 27.0-33.0 pg Mean Corpuscular Hemoglobin Concent 32.8 32.0-36.0 g/dL Red Cell Distribution Width 12.7 11.0-15.5 % Platelet Count 231 130-400 K/uL Mean Platelet Volume 10.7 H 7.5-10.5 fL Immature Granulocyte % (Auto) 0.3 0-1 % Neutrophils (%) (Auto) 55.0 40.0-77.0 % Lymphocytes (%) (Auto) 32.4 21.0-51.0 % Monocytes (%) (Auto) 7.7 3.0-13.0 % Eosinophils (%) (Auto) 4.3 0.0-8.0 % Basophils (%) (Auto) 0.3 0.0-5.0 % Neutrophils # (Auto) 3.5 1.8-7.7 K/uL Lymphocytes # (Auto) 2.0 1.0-4.8 K/uL Monocytes # (Auto) 0.5 0.1-1.0 K/uL Eosinophils # (Auto) 0.27 0.00-0.70 K/uL Basophils # (Auto) 0.02 0.00-0.20 K/uL Absolute Immature Granulocyte (auto 0.02 0-1 K/uL Nucleated Red Blood Cells 0.0 0.0-0.19 % Sodium Level 142 136-145 mmol/L Potassium Level 3.9 3.5-5.1 mmol/L Chloride Level 108 101-111 mmol/L Carbon Dioxide Level 28 21-32 mmol/L Blood Urea Nitrogen 18 7-18 mg/dL Creatinine 0.7 0.5-1.0 mg/dL Glomerular Filtration Rate Calc 85 >90 mL/min Random Glucose 87 70-105 mg/dL Total Calcium 8.6 8.5-10.1 mg/dL Phosphorus Level 4.0 2.5-4.9 mg/dL Magnesium Level 2.10 1.80-2.40 mg/dL Current Medications Medications (Trade) Dose Ordered Sig/Ashley Route PRN Reason Start Time Stop Time Status Last Admin Dose Admin Acetaminophen (TYLenol 325MG TAB) 650 mg Q6H PRN PO MILD PAIN (1-3) 01/22/25 17:30 02/21/25 17:29 01/23/25 13:01 650 MG Albuterol (DUOneb) 1 udvial Q6H PRN IH SHORTNESS OF BREATH 01/22/25 17:30 02/21/25 17:29 Amlodipine Besylate (NorvASC 5MG TAB) 5 mg DAILY PO 01/23/25 09:00 01/23/25 14:00 DC Amlodipine Besylate (NorvASC 5MG TAB) 5 mg DAILY PO 01/25/25 09:00 02/24/25 08:59 01/25/25 09:41 5 MG Amlodipine Besylate (NorvASC 5MG TAB) 10 mg DAILY PO 01/24/25 09:00 01/24/25 11:17 DC Ceftriaxone Sodium (ROCEphine 1G INJ) 1 gm Q24H IVPB 01/23/25 07:30 01/24/25 02:46 DC 01/23/25 09:09 1 GM Ceftriaxone Sodium (ROCEphine 1G INJ) 1 gm Q24H IVPB 01/24/25 09:00 01/25/25 15:21 DC 01/25/25 09:41 1 GM Docusate Sodium (COLace 100MG CAP) 100 mg BID PO 01/22/25 21:00 02/21/25 20:59 01/25/25 22:12 100 MG Enoxaparin Sodium (Lovenox) 30 mg DAILY SQ 01/25/25 09:00 02/24/25 08:59 01/25/25 09:41 30 MG Hydralazine HCl (APRESOLine 20MG INJ) 5 mg Q6H PRN IV ADMINISTER FOR SBP > 160 01/22/25 18:00 02/21/25 17:59 Levothyroxine Sodium (SYNTHroid 25MCG TAB) 25 mcg SYN PO 01/25/25 06:30 02/22/25 07:29 01/26/25 05:59 25 MCG Levothyroxine Sodium (SYNTHroid 50MCG TAB) 25 mcg SYN PO 01/23/25 07:30 01/24/25 07:15 DC Lorazepam (AtiVAN) 0.5 mg Q12H PRN IVP ANXIETY/AGITATION 01/22/25 18:00 01/23/25 16:17 DC 01/23/25 04:10 0.5 MG Multivitamins/ Minerals 10 ml/ Chromium/Copper/ Manganese/Zinc 3 ml/Amino Acids/ Electrolytes/ Dextrose 2,000 ml @ 80 mls/hr AD IV 01/23/25 19:30 01/24/25 07:14 DC 01/23/25 21:08 80 MLS/HR Multivitamins/ Minerals 10 ml/ Chromium/Copper/ Manganese/Zinc 3 ml/Amino Acids/ Electrolytes/ Dextrose 2,000 ml @ 80 mls/hr AD IV 01/24/25 21:00 01/24/25 20:58 DC Multivitamins/ Minerals 10 ml/ Folic Acid 1 mg/ Thiamine HCl 100 mg/Sodium Chloride 1,010 ml @ 75 mls/hr Q24H IV 01/22/25 17:30 01/23/25 19:19 DC 01/23/25 18:49 75 MLS/HR Olanzapine (ZyPREXA 10MG/ML 1ML Vial) 2.5 mg Q6H6 PRN IM AGITATION 01/23/25 16:30 02/22/25 16:29 01/23/25 20:29 2.5 MG Ondansetron HCl (zoFRAN 4MG INJ) 4 mg Q6H PRN IVP NAUSEA/VOMITING 01/22/25 17:30 01/24/25 11:17 DC Pantoprazole Sodium (PROTonix 40MG INJ) 40 mg Q24H IVP 01/22/25 17:30 02/21/25 17:29 01/25/25 16:47 40 MG Polyethylene Glycol (MIRalax 3350 17 GM POWD.PACK) 17 gm DAILY PO 01/23/25 09:00 02/22/25 08:59 01/25/25 09:41 17 GM Thiamine HCl (Vitamin B-1) 100 mg Q24H IVP 01/22/25 17:30 02/21/25 17:29 01/25/25 16:47 100 MG Trazodone HCl (DesyREL/OlepTRO) 50 mg HS PO 01/24/25 21:00 02/23/25 20:59 01/25/25 22:12 50 MG Trazodone HCl (DesyREL/OlepTRO) 100 mg HS PO 01/24/25 21:00 02/22/25 20:59 Trazodone HCl (DesyREL/OlepTRO) 150 mg HS PO 01/23/25 21:00 01/24/25 07:16 DC 01/23/25 20:28 150 MG DIAGNOSTICS / RADIOLOGY: [ ] ASSESSMENT: Hypertensive urgency, POA Failure to thrive, POA Moderate protein calorie malnutrition, POA Advanced dementia, POA Delirium complicating advanced dementia, POA Constipation x2 weeks, POA History of lung cancer being followed by oncologist in [place], [place], POA Debility/frailty, POA Underlying history of hypertension, POA Hypothyroidism, POA Insomnia, POA PLAN: Delirium complicating advanced dementia, POA * On presentation vitals were T-max of 97.9 F, heart rate of 80, blood pressure 201/90. Pertinent labs - Ammonia 26, Vitamin B12-386, Folic acid-11.30, Procalcitonin <0.05, TSH-4.63. * Urinalysis was ordered which was positive for leukocyte esterase (250), Urine WBC 11-25, Urine RBC 2-5 * Urine culture negative so discontinued Rocephin 1 g yesterday * CT head results show - no acute bleed or infarct, chronic ischemic and atrophic changes and a extra-axial lesion in the left parietal region which likely represents a meningioma. * CT abdomen results were unremarkable * Chest X-ray results were unremarkable * Tele-Psych is on board will follow their recommendations. * Patient started on Olanzapine 2.5mg Q6H PRN * Speech evaluation was ordered, pending * Will monitor with daily Q4H neurochecks. Hypertensive urgency, POA * On presentation patient blood pressure was 201/90. Pertinent labs- BUN 15, Creatinine 0.8, T.bilirubin 0.4, AST 24, ALT 22, ALP 80 . Today blood pressure is 137/76 * CT head was ordered, results show - no acute bleed or infarct, chronic is chemic and atrophic changes and a extra-axial lesion in the left parietal region which likely represents a meningioma. * Continue Amlodipine 5mg PO daily * Continue Hydralazine 5mg Q6H PRN. * Will monitor with daily blood pressure monitoring and labs Failure to thrive, POA * Pertinent labs- total protein 7.4, Albumin 3.4, Vitamin B12-386, Folic acid- 11.30, TSH-4.63. * Discontinue PPN, start GI soft diet and see if patient tolerates History of lung cancer being followed by oncologist in [place], [place], POA * Patient is being followed by Dr. Pablo with Oncology in [facility], she was told that she had lung cancer recently about three months ago. * Chest X-ray was ordered, results were unremarkable. * Oncology was consulted, will follow their recommendations. Constipation x2 weeks, POA: * Did not have a bowel movement yet according to her daughter * Patient started on MiraLax, Colace twice a day. * Will minimize narcotics unless patient has severe pain Supportive measures DVT prophylaxis with Lovenox 30 mg, GI prophylaxis with Protonix ATTESTATION BY PHYSICIAN I have seen and examined the patient. I reviewed the documentation, medical decision making, and treatment plan as noted by the resident physician above. I agree with the findings and plan of care. Robert Holguin IV, MD, BHAVANI MD Jan 26, 2025 12:36
[2025-01-27] VITALS: BP 110/57; PULSE 60; RESP 18; TEMP 97.9
[2025-01-27 04:00] VITALS: BP 123/60; PULSE 55; RESP 20; TEMP 97.9
[2025-01-27 04:32] LABS: NUCLEATED RED BLOOD CELLS 0.0 % (0.0-0.19); PLATELET COUNT (AUTO) 206.0 K/uL (130-400); RED BLOOD CELL COUNT(AUTO) 3.97 MIL/uL (4.00-5.50); RED CELL DISTRIBUTION WIDTH 12.7 % (11.0-15.5); WHITE BLOOD COUNT (AUTO) 4.9 K/uL (4.8-10.8)
[2025-01-27 04:41] LABS: CREATININE 0.7 mg/dL (0.5-1.0); GLOMERULAR FILTR. RATE CALC 85.0 mL/min (>90); GLUCOSE,RANDOM 83.0 mg/dL (70-105); SODIUM SERUM 142.0 mmol/L (136-145); UREA NITROGEN, BLOOD 15.0 mg/dL (7-18)
[2025-01-27 08:00] VITALS: BP 114/53; PULSE 55; RESP 16; TEMP 97.8
[2025-01-27 10:17] VITALS: O2SAT 96
[2025-01-27 12:00] VITALS: BP 127/74; PULSE 87; RESP 19; TEMP 98.3
--- NOTE | 2025-01-27 13:45 | NUR ---
SPEECH NOTE: STOCKROOM CLERK coordinated with nurse Rg and patient/family. As per nurse Rg and patient/family no overt s/s of aspiration with diet recommendations of minced and moist solids, thin liquids. Please re-consult speech therapy services if any s/s of aspiration arise. All questions answered. Addendum: 01/27/[address] [facility] Amended: Links added.
--- NOTE | 2025-01-27 15:18 | NUR ---
SW received another referral for hospice. Family had previously said no to hospice at this time because they wanted to follow up with pt's oncologist. Family stands by that decision, pt will want to go home.
--- NOTE | 2025-01-27 18:19 | DS ---
Discharge Summary Hospital Course Summary: This 84-year-old female with advanced dementia, recently diagnosed lung cancer (not on active chemotherapy), hypertension, hypothyroidism, hyperlipidemia, and a history of debility and frailty was admitted for evaluation of poor oral intake, progressive weight loss (1015 lbs over three weeks), agitation, co nfusion, and worsening delirium over the preceding 23 weeks. The patient had a baseline of significant cognitive impairment, requiring assistance with activities of daily living, and was being followed by oncology in [place], [place]. On initial presentation, she was afebrile, hypertensive (BP 201/90), and exhibited severe agitation and confusion, with laboratory studies notable for unremarkable BMP, WBC 8300, hemoglobin 14.2, platelets 280,000, and no acute metabolic derangements. Imaging included a CT head showing chronic ischemic and atrophic changes and a left parietal extra-axial lesion likely representing a meningioma, with unremarkable CT abdomen and chest X-ray. She was maintained on tramadol for pain, but had not had a bowel movement for two weeks, and was started on a bowel regimen with MiraLax and Colace.During hospitalization, the patients course was marked by fluctuating mentation, alternating periods of agitation and somnolence, and persistent functional decline. On 01/23, she was started on peripheral parenteral nutrition (PPN) and olanzapine 2.5 mg Q6H PRN for agitation, with tele-psychiatry consulted for ongoing behavioral management. Daily assessments revealed periods of improved sleep and mentation, Vitals stabilized over the course of admission, with blood pressure improving to 113/56 and pulse 55, and oxygen saturation remaining adequate. Urine culture was nega tive, prompting discontinuation of Rocephin. The patient was transitioned from PPN to a soft GI diet as tolerated. Patient is being discharged with instructions to follow up with PCP within 2-3 days Follow up with your oncologist as scheduled Drink adequate fluids throughout the day Eat, small frequent meals Continue minced and moist solids, thin liquids, and crushed meds with pureed as tolerated according to dietary recommendations Monitor for symptoms like increased confusion , agitation, loss of appetite, poor oral intake, fever, vomiting, dizziness, falls, weakness, change in bowel or bladder movements Tinsmith Helper(s): Tele-Psychiatry consult was done by Dr. Mitchell Diagnoses: Neurocognitive Disorder Patient given Ativan this morning for agitation - patient was sedated but woke up disoriented and agitated. Plan: 1. recommend not to use any benzos as it may exacerbate delirium 2. Would restart home medication of trazodone 150mg po qhs for sleep 3. can consider zyprexa 2.5mg PO/IM q6hr PRN for agitation / not to be given with benzo as it may cause respiratory depression. Get recent EKG and monitor qtc. Oncology consult was done by Dr. Landers IMPRESSION: * Patient with rapid decline. * History of lung cancer, untreated. * Hypertension. * Hypothyroidism. * Severe dementia. PLAN: I will reach out to Dr. Pablo in [place] to see if I can get some kind of information about the lung cancer. I talked to the daughter. I am really not sure how far to go with the workup and evaluation because it sounds like her dementia itself is terminal and it is not clear whether we should do anything else to pursue this. We will continue hydration and supportive care. I will try to marshal all the records from [place] today. We will have further recommendations once I get that. Procedure(s): [facility] [address] [place] [id number] IMAGING REPORT Signed PATIENT: NIRAV TOMPKINS MR#: [id number] : 1940 SEX: F AGE: 84 LOCATION: EDHIP ORDER 10 STATUS: ADM IN REPORT#: [id number] SERVICE 06 REASON: hx of dementia, delirium and confusion ORDERING PHYSICIAN: DUYEN ROTHMAN MD PROCEDURE: HEAD WO - CT HEAD/BRAIN W/O CONTRAST EXAM: CT Head Without IV contrast. CLINICAL HISTORY: hx of dementia, delirium and confusion TECHNIQUE: Axial computed tomography images of the head/brain without intravenous contrast. COMPARISON: None provided. FINDINGS: BRAIN: No acute bleed or infarct. Chronic ischemic and atrophic changes. 1.5 x 1.2 x 0.8 cm calcified extra-axial lesion in the left parietal region which likely represents a meningioma. VENTRICLES: No hydrocephalus. ORBITS: The orbits are unremarkable. SINUSES AND MASTOIDS: The paranasal sinuses and mastoid air cells are clear. BONES: No fracture. SOFT TISSUES: Unremarkable. IMPRESSION: 1. No acute bleed or infarct. Chronic ischemic and atrophic changes. 2. 1.5 x 1.2 x 0.8 cm calcified extra-axial lesion in the left parietal region which likely represents a meningioma. /[place] DICTATED BY: VIVI OWENS MD DATE: 01/22/251941 ELECTRONICALLY SIGNED BY: VIVI OWENS MD DATE: 01/22/251941 [address] [place] [id number] IMAGING REPORT Signed PATIENT: NIRAV TOMPKINS MR#: [id number] : 1940 SEX: F AGE: 84 LOCATION: EDHIP ORDER 10 STATUS: ADM IN [facility] REPORT#: [id number] SERVICE 06 REASON: nausea, with poor oral intak no bowel movement x 2 weeks, hx of lung cancer ORDERING PHYSICIAN: DUYEN ROTHMAN MD PROCEDURE: ABD PEL WO - CT ABDOMEN/PELVIS W/O CONTRAST EXAM: CT Abdomen and Pelvis Without IV contrast CLINICAL HISTORY: nausea, with poor oral intake, no bowel movement x 2 weeks, hx of lung cancer TECHNIQUE: Axial computed tomography images of the abdomen and pelvis without intravenous contrast. CONTRAST: No IV contrast. COMPARISON: None provided. FINDINGS: LUNG BASES: Mild bibasilar atelectasis. The rest of the lung bases appear clear. No pleural effusions are seen. LIVER: Unremarkable. GALLBLADDER AND BILE DUCTS: The gallbladder appears within normal limits. No radioopaque gallstones are seen. No biliary ductal dilatation is evident. PANCREAS: Unremarkable. SPLEEN: Unremarkable. ADRENAL GLANDS: Unremarkable. KIDNEYS, URETERS, AND BLADDER: The kidneys appear within normal limits. There is no hydronephrosis or hydroureter. No urinary calculi are seen. STOMACH AND BOWEL: Unremarkable appearance of the stomach and bowel. No evidence of bowel obstruction. No evidence suggesting enteritis or colitis. Mild constipation. APPENDIX: No evidence of acute appendicitis on CT examination. PERITONEUM: No free fluid. No free air. LYMPH NODES: No lymphadenopathy is evident. REPRODUCTIVE: The uterus is surgically absent. No adnexal lesion. VASCULATURE: Mild atherosclerotic wall calcifications in the abdominal aorta. No evidence of abdominal aortic aneurysm. BONES: Moderate multilevel degenerative changes in the spine. No aggressive appearing osseous lesion. No acute osseous pathology evident. IMPRESSION: No acute intra-abdominal or pelvic abnormality. /[place] DICTATED BY: BUBBA MILLER Jr., MD DATE: 01/22/252034 ELECTRONICALLY SIGNED BY: BUBBA MILLER Jr., MD DATE: 01/22/252034 [place] [address] IMAGING REPORT Signed PATIENT: NIRAV TOMPKINS MR#: [id number] : 1940 SEX: F AGE: 84 LOCATION: ED ORDER 06 STATUS: REG REPORT#: [id number] SERVICE 130 REASON: CP ORDERING PHYSICIAN: CATHY JARAMILLO MD PROCEDURE: CXR1VW - CHEST 1VW EXAM: CR Chest, 1 View. CLINICAL HISTORY: CP COMPARISON: None provided. FINDINGS: LUNGS: There is no mass, infiltrate, or acute pulmonary abnormality. PLEURAL SPACES: No pleural effusion or pneumothorax. MEDIASTINUM: Cardiac size and mediastinal contours within normal limits. BONES: No aggressive appearing osseous lesion seen. IMPRESSION: No acute cardiopulmonary pathology is evident. /[place] DICTATED BY: BUBBA MILLER Jr., MD DATE: 01/22/251503 ELECTRONICALLY SIGNED BY: BUBBA MILLER Jr., MD DATE: 01/22/251503 Assessment/Plan: ASSESSMENT: Hypertensive urgency, POA Failure to thrive, POA Moderate protein calorie malnutrition, POA Advanced dementia, POA Delirium complicating advanced dementia, POA Constipation x2 weeks, POA History of lung cancer being followed by oncologist in [place], [place], POA Debility/frailty, POA Underlying history of hypertension, POA Hypothyroidism, POA Insomnia, POA Discharge Instructions: Follow up with PCP within 2-3 days Follow up with your oncologist as scheduled Drink adequate fluids throughout the day Eat, small frequent meals Continue minced and moist solids, thin liquids, and crushed meds with pureed as tolerated according to dietary recommendations Monitor for symptoms like increased confusion , agitation, loss of appetite, poor oral intake, fever, vomiting, dizziness, falls, weakness, change in bowel or bladder movements Home Medications: Active Scripts Amlodipine Besylate (Amlodipine Besylate) 5 Mg Tablet, 1 TAB PO DAILY for high blood pressure for 30 Days, #30 TAB 0 Refills Prov:GHISLAINE HA 02/16/24 Reported Medications Docusate Sodium (Docusate Sodium) 100 Mg Capsule, 100 MG PO DAILY, CAP 01/06/25 Cyanocobalamin (Vitamin B-12) (Vitamin B-12) 1,000 Mcg Tablet, 1000 MCG PO DAILY, TAB 01/06/25 [Vitamin D3] 1.250MG No Conflict Check, 1.25 MG PO QWEEK for PRESCRIBE 01/06/25 Tramadol Hcl (Tramadol HCl) 50 Mg Tablet, 50 MG PO AD, TAB 01/06/25 Trazodone HCl (Trazodone HCl) 150 Mg Tablet, 150 MG PO HS, TAB 01/06/25 Levothyroxine Sodium (Levothroid/Synthroid) 50 Mcg Tab, 25 MCG PO DAILY, TAB 02/15/24 Continued Medications: Amlodipine Besylate (Amlodipine Besylate) 5 Mg Tablet 1 TAB PO DAILY for high blood pressure for 30 Days, #30 TAB 0 Refills Cyanocobalamin (Vitamin B-12) (Vitamin B-12) 1,000 Mcg Tablet 1000 MCG PO DAILY, TAB Docusate Sodium (Docusate Sodium) 100 Mg Capsule 100 MG PO DAILY, CAP Levothyroxine Sodium (Levothroid/Synthroid) 50 Mcg Tab 25 MCG PO DAILY, TAB Tramadol Hcl (Tramadol HCl) 50 Mg Tablet 50 MG PO AD, TAB Trazodone HCl (Trazodone HCl) 150 Mg Tablet 150 MG PO HS, TAB [Vitamin D3] () 1.250MG 1.25 MG PO QWEEK for PRESCRIBE Time spent arranging discharge: 31-60 minutes ATTESTATION BY PHYSICIAN I have seen and examined the patient. I reviewed the documentation, medical decision making, and treatment plan as noted by the resident physician above. I agree with the findings and plan of care. KOURTNEY PINK MD, SHAJI MD Jan 27, 2025 18:19
--- NOTE | 2025-01-28 02:27 | PN ---
LOCATION: SUBJECTIVE: The patient is resting comfortably. She is eating food according to the family. She was able to get up yesterday. She has got a PureWick device now to urinate overnight. PHYSICAL EXAMINATION: GENERAL: Shows an elderly woman, quite comfortable. VITAL SIGNS: Blood pressure 125/80, pulse 80, respirations 20. CHEST: Clear. ABDOMEN: Soft. 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 * End-stage dementia. * Dehydration. PLAN: The patient looks like she could go home today. I will coordinate care with Dr. Pablo, her oncologist in [place]. I will be happy to see back in the office. TID: [id number] RECEIPT: [id number]
== END 2025-01-27 18:45 | disposition home or self-care (01) | DRG 305 ==
LOC: EDH 12:59 → EDHIP 17:03 → 3BH 01-23 01:01
PROVIDERS: ADMIT Internal Medicine; ATTEND Internal Medicine
DX: I16.0 Hypertensive urgency (principal); E44.0 Moderate protein-calorie malnutrition; C34.90 Malignant neoplasm of unspecified part of unspecified bronchus or lung; E03.9 Hypothyroidism, unspecified; E86.0 Dehydration; E78.00 Pure hypercholesterolemia, unspecified; I10 Essential (primary) hypertension; F03.90 Unspecified dementia, unspecified severity, without behavioral disturbance, psychotic disturbance, mood disturbance, and anxiety; J98.11 Atelectasis; T40.605A Adverse effect of unspecified narcotics, initial encounter; G47.00 Insomnia, unspecified; K59.03 Drug induced constipation; R62.7 Adult failure to thrive; Z85.118 Personal history of other malignant neoplasm of bronchus and lung; Z90.710 Acquired absence of both cervix and uterus; Z68.21 Body mass index [BMI] 21.0-21.9, adult
CPT/HCPCS: 36415; 70450; 71045; 74176; 80048; 80053; 81001; 82140; 82550; 82607; 82746; 83036; 83615; 83735; 84100; 84145; 84443; 84484; 85025; 85027; 85610; 85651; 85730; 86140; 87086; 92610; 93005; 99285; G0378; J0696; J1650; J2060; J2470; J3411; J3490; J7030